=== PATIENT | female | born 1930 | race Asian ===

== ENCOUNTER 2016-11-20 16:01 | Emergency (ER) | payer OTHER ==
[2016-11-20 17:16] VITALS: BP 175/73
--- NOTE | 2016-11-20 19:36 | RAD ---
HISTORY: Cough, right rib tenderness COMPARISONS: None VIEWS: 7: Frontal dual-energy and lateral views of the chest, frontal and views of the right hemithorax. FINDINGS: CARDIOMEDIASTINAL SILHOUETTE: The aorta is tortuous. The cardiomediastinal silhouette is otherwise unremarkable. CHARLOTTE: The charlotte are normal. PLEURA: The costophrenic angles are sharp. No pleural abnormalities are noted. LUNG PARENCHYMA: The lungs are clear. ABDOMEN: The upper abdomen is clear. There is no subphrenic gas. BONES AND SOFT TISSUES: There is osteopenia. There is callus formation along the lateral aspect of the right ninth rib. There are degenerative changes of the shoulders and spine. OTHER: None. IMPRESSION: 1. CALLUS FORMATION ALONG THE RIGHT NINTH RIB SUGGESTIVE OF SUBACUTE TO CHRONIC RIB FRACTURE. 2. NO APPRECIABLE PNEUMOTHORAX. 3. NO ACTIVE CARDIOPULMONARY DISEASE
[2016-11-21 12:12] LABS: Urine Bacteria Absent (Absent); Urine Bilirubin Negative (Negative); Urine Glucose Negative (Negative); Urine Nitrite Negative (Negative)
--- NOTE | 2016-12-26 10:11 | UC ---
Baljeet Riley Janilya, scribed for Victoria Willett DO on 11/20/16 at 1825 . Respiratory Complaint HPI - HPI Summary HPI Summary: A 86 y/o female came in to [facility] presenting w/ a gradual onset of intermittent coughing starting a week ago. This is also when she developed rib pain. Severity rated 7/10. It is worse with palpation. And it does not radiate. In addition, there was also recent injury about 10 days ago, when she fell on her buttocks. Ibuprofen gave a little relief to her pain. When the pt first fell , she did not feel any pain in the ribs. She also did not feel any unsteadiness , confusion, or any other problems. Pt denies sore throat, ear ache, fever, sinus congestion, nasal congestion, runny nose, SOB, CP, urinary Sx, n/v/d. Pt has baseline heart murmur. - History of Current Complaint Chief Complaint: UCRespiratory Stated Complaint: RIB PAIN Time Seen by Provider: 11/20/16 18:11 Hx Obtained From: Patient, Family/Field Mechanical Meter Tester - son, Human Services Supervisor Onset/Duration: Gradual Onset, Lasting Days, Still Present Timing: Intermittent Episodes Severity Initially: Moderate Severity Currently: Moderate Pain Intensity: 8 Aggravating Factors: Nothing Alleviating Factors: Nothing Associated Signs And Symptoms: Positive: URI. Negative: Dyspnea, Fever, Chills , Wheezing, Hemoptysis, Dizziness, Sinus Discomfort - Allergies/Home Medications Allergies/Adverse Reactions: Allergies Allergy/AdvReac Type Severity Reaction Status Date / Time No Known Allergies Allergy Verified 11/20/16 17:15 PMH/Surg Hx/FS Hx/Imm Hx Previously Healthy: Yes Endocrine History Of: Reports: Diabetes Cardiovascular History Of: Reports: Hypertension Denies: Myocardial Infarction Respiratory History Of: Denies: COPD, Asthma - Surgical History Surgical History: None - Family History Known Family History: Positive: Hypertension, Diabetes Negative: Cardiac Disease - Social History Occupation: Retired Lives: With Family - son Alcohol Use: Occasionally Alcohol Amount: 3-4/week One every other day). Substance Use Type: None Smoking Status (MU): Never Smoked Tobacco Review of Systems Constitutional: Negative Skin: Negative Eyes: Negative ENT: Negative Respiratory: Cough Cardiovascular: Negative Gastrointestinal: Negative Genitourinary: Negative Motor: Negative Neurovascular: Negative Musculoskeletal: Other: - rib pain Neurological: Negative Psychological: Negative All Other Systems Reviewed And Are Negative: Yes Physical Exam Triage Information Reviewed: Yes Appearance: Well-Appearing, No Pain Distress, Well-Nourished Vital Signs: Initial Vital Signs Temp 98.6 F 11/20/16 17:09 Pulse 76 11/20/16 17:09 Resp 16 11/20/16 17:09 BP 175/73 11/20/16 17:09 Pulse Ox 98 11/20/16 17:09 Vital Signs Reviewed: Yes Eyes: Positive: Conjunctiva Clear. Negative: Discharge ENT: Positive: Hearing grossly normal. Negative: Muffled/hoarse voice Neck exam: Normal Neck: Positive: Supple Respiratory: Positive: Lungs clear, Normal breath sounds, No respiratory distress, No accessory muscle use Cardiovascular: Positive: RRR, No Murmur Musculoskeletal: Positive: Other: - Tenderness to ribs VIII-X on the right Neurological: Positive: Alert, Muscle Tone Normal Psychological Exam: Normal Psychological: Positive: Age Appropriate Behavior Skin Exam: Normal Skin: Positive: Other - warm, dry, normal color UC Diagnostic Evaluation - Laboratory O2 Sat by Pulse Oximetry: 98 - Radiology Xray Interpretation: No Acute Changes Radiology Interpretation Completed By: Radiologist Respiratory Course/Dx - Differential Dx/Diagnosis Differential Diagnosis/HQI/PQRI: Bronchitis, Lower Resp Infection, Other - rib fx, costochondritis, rib dysfunction Provider Diagnoses: rib fx, uri Discharge - Discharge Plan Condition: Stable Disposition: HOME Prescriptions: traMADol TAB* [Ultram*] 50 mg PO Q8H PRN #14 tab MDD 3 TABS PRN Reason: Pain Patient Education Materials: Rib Fracture (ED), Upper Respiratory Infection (ED ) Referrals: Preeti Padgett MD [Primary Care Provider] - (follow up in 2-5 days) Additional Instructions: IF TYLENOL DOES NOT ADAQUATELY CONTROL PAIN, YOU CAN TRY THE FOLLOWING MED WITH CAUTION: ULTRAM (tramadol hydrochloride): Ultram is an excellent drug for pain relief. It is not a narcotic, but it works in a similar way. Ultram can take up to two hours for full effect. Although not addicting, Ultram is best avoided in patients with a history of drug abuse. Ultram should not be used with alcohol, sleeping pills, or narcotics. If you're prone to seizures, Ultram can make you more likely to have a seizure. Ultram can be hazardous when combined with MAO-inhibitor antidepressants (such as Nardil or Parnate). Be sure your doctor is aware of all medicines you are taking. Persons with severe liver or kidney disease should increase the time between doses of Ultram. Discuss this with your doctor if you're uncertain. Side effects of Ultram can include dizziness, nausea, constipation, sleepiness, and itching. (These side effects are also seen with narcotic pain medicines.) Please call your doctor if you have other disturbing effects. THIS MEDICATION CAN MAKE YOU GROGGY AND UNSTABLE OF YOUR FEET. SO PLEASE TAKE CARE WHEN GOING FROM LAYING DOWN TO SEATED OR WHEN STANDING UP. IF YOU FEEL LIGHT HEADED WHEN CHANGING POSITIONS, PLEASE SIT OR LAY BACK DOWN TO AVOID FALLING. ESPECIALLY WHEN WAKING UP AT NIGHT TO PEE. The documentation as recorded by the Baljeet solitario Janilya accurately reflects the service I personally performed and the decisions made by me, Victoria Willett DO.
== END 2016-11-20 20:15 | disposition home or self-care (01) ==
LOC: UCEAST 16:01
DX: R07.81 Pleurodynia (principal); J06.9 Acute upper respiratory infection, unspecified; M25.70 Osteophyte, unspecified joint
CPT/HCPCS: 71020; 81002; 81003; 81015; 87086; 99212; G0463

== ENCOUNTER 2019-03-02 13:02 | Inpatient (IN) | payer MEDICARE ==
[2019-03-02] MEDS ORDERED: Nitroglycerin TAB 0.4 MG* 0.4 MG TAB ONE (13:20)
[2019-03-02] MEDS ORDERED: nitroGLYCERIN DRIP* 0 MCG/0 ML BTL ONE ×2 (13:21→13:28)
[2019-03-02] MEDS ORDERED: Ticagrelor* 90 MG TAB PO ONE (13:21)
[2019-03-02] MEDS ORDERED: Aspirin 81 mg CHEW TAB* 81 MG TAB.CHEW ONE (13:21)
[2019-03-02] MEDS ORDERED: Heparin for STEMI(*) 5,000 UNITS/ML 1 ML VIAL IV ONE ×2 (13:21→13:31)
[2019-03-02] MEDS ORDERED: Morphine 4 MG/ML VIAL (1 ml) 4 MG/ML VIAL ONE (13:21)
[2019-03-02] MEDS ORDERED: Ondansetron INJ* 2 MG/ML VIAL ONE (13:21)
[2019-03-02] MEDS ORDERED: Aspirin 81 mg CHEW TAB* 81 MG TAB.CHEW PO ONE (13:23)
[2019-03-02] MEDS ORDERED: Lidocaine 1% INJ* 10 MG/ML 30 ML SDV ONE (13:28)
[2019-03-02] MEDS ORDERED: Heparin 2 UNITS/ML IVPREMIX* 0 UNIT/0 ML BAG IV ONE (13:30)
[2019-03-02] MEDS ORDERED: Heparin(*) 1000 UNIT/ML 10 ML VIAL CATH LAB IV ONE (13:30)
[2019-03-02] MEDS ORDERED: Iohexol 350 (CONTRAST) 200 ML MDV IV ONE (13:36)
--- NOTE | 2019-03-02 13:40 | ED ---
HPI Chest Pain - HPI Summary HPI Summary: 88 year old F brought in by [facility] to [facility] from home, where patient lives with her children, accompanied by grandson with a chief complaint of generalized weakness and chest pain since 2 days ago. The patient is not currently having chest pain or any pain. The patient rates the pain 0/10 in severity. Symptoms aggravated by nothing. Symptoms alleviated by nothing. Grandson reports urinary incontinence. Patient reports upper right arm pain that began 2 days ago. Patient denies shortness of breath, nausea, and vomiting. EMS reports that patient has hx hypertension, diabetes, and hypercholesterolemia. No hx NM. EMS reports that patient's BP en route was 144/ 76. EMS did not give patient aspirin. Per grandson, grandson called patient at 1200 today because grandson's dad was worried about patient's symptoms. Patient was evaluated in room upon arrival at 1317. Dr. Hair, interventionalist, is at patient bedside at 1325. Dr. Hair reads echocardiogram at 1352 and reports that the anterior wall is not moving well, thinning at the apex. He is awaiting the official reading. He believes that patient had STEMI 2-3 days ago. He is still awaiting patient's son to arrive for further history. Vital signs while in room: HR 80 bpm, BP 110/65, O2 sat 97% Home Medications Medication Instructions Recorded Confirmed Type Aspirin 81 mg CHEW TAB* [Aspirin 1 tab PO DAILY 12/10/15 03/02/19 History Low Dose TAB*] Ergocalciferol CAP* [Drisdol CAP*] 50,000 units PO WEEKLY 03/02/19 03/02/19 History Furosemide TAB* [Lasix TAB*] 20 mg PO DAILY 03/02/19 03/02/19 History Losartan/Hydrochlorothiazide 0.5 tab PO BID 03/02/19 03/02/19 History [Losartan Potassium/Hydroc 50-12.5 mg] Meclizine TAB* [Antivert 12.5 TAB*] 12.5 mg PO BID PRN 03/02/19 03/02/19 History Multivitamins/Minerals TAB* 1 tab PO DAILY 03/02/19 03/02/19 History [Theragran/minerals TAB*] Ruston-3 Fatty Acids/Fish Oil [Fish 1 cap PO DAILY 03/02/19 03/02/19 History Oil 1200 mg] Simvastatin TAB(NF) [Zocor(NF)] 20 mg PO QPM 03/02/19 03/02/19 History amLODIPine TAB* [Norvasc 5 mg TAB*] 10 mg PO DAILY 03/02/19 03/02/19 History metFORMIN* [Glucophage 500 MG TAB 1,000 mg PO QAM 03/02/19 03/02/19 History *] metFORMIN* [Glucophage 500 MG TAB 500 mg PO QPM 03/02/19 03/02/19 History *] - History of Current Complaint Chief Complaint: EDChestPainROMI Time Seen by Provider: 03/02/19 13:28 Hx Obtained From: Patient, Family/Wash House Supervisor - Grandson, EMS Onset/Duration: Started Days Ago - 2, Still Present Timing: Constant Current Severity: None Pain Intensity: 0 Pain Scale Used: 0-10 Numeric Aggravating Factor(s): Nothing Alleviating Factor(s): Nothing Associated Signs and Symptoms: Positive: Other: - urinary incontinence, upper right arm pain; NEGATIVE: shortness of breath, nausea, and vomiting - Allergy/Home Medications Allergies/Adverse Reactions: Allergies Allergy/AdvReac Type Severity Reaction Status Date / Time No Known Allergies Allergy Verified 11/20/16 17:15 Home Medications: Home Medications Ergocalciferol CAP* [Drisdol CAP*] 50,000 units PO WEEKLY 03/02/19 [History Confirmed 03/02/19] Furosemide TAB* [Lasix TAB*] 20 mg PO DAILY 03/02/19 [History Confirmed 03/02/19 ] Losartan/Hydrochlorothiazide [Losartan Potassium/Hydroc 50-12.5 mg] 0.5 tab PO BID 03/02/19 [History Confirmed 03/02/19] Meclizine TAB* [Antivert 12.5 TAB*] 12.5 mg PO BID PRN 03/02/19 [History Confirmed 03/02/19] Multivitamins/Minerals TAB* [Theragran/minerals TAB*] 1 tab PO DAILY 03/02/19 [ History Confirmed 03/02/19] Ruston-3 Fatty Acids/Fish Oil [Fish Oil 1200 mg] 1 cap PO DAILY 03/02/19 [ History Confirmed 03/02/19] Simvastatin TAB(NF) [Zocor(NF)] 20 mg PO QPM 03/02/19 [History Confirmed ] amLODIPine TAB* [Norvasc 5 mg TAB*] 10 mg PO DAILY 03/02/19 [History Confirmed 03/02/19] metFORMIN* [Glucophage 500 MG TAB *] 1,000 mg PO QAM 03/02/19 [History Confirmed 03/02/19] metFORMIN* [Glucophage 500 MG TAB *] 500 mg PO QPM 03/02/19 [History Confirmed 03/02/19] PMH/Surg Hx/FS Hx/Imm Hx Previously Healthy: No Endocrine/Hematology History: Reports: Hx Diabetes Cardiovascular History: Reports: Hx Hypercholesterolemia, Hx Hypertension Denies: Hx Angina, Hx Coronary Artery Disease, Hx Myocardial Infarction, Hx Valvular Heart Disease Respiratory History: Denies: Hx Asthma, Hx Chronic Obstructive Pulmonary Disease (COPD) - Surgical History Surgery Procedure, Year, and Place: bilateral cataract removal Infectious Disease History: No Infectious Disease History: Denies: Traveled Outside the [place] in Last 30 Days - UNKNOWN - Family History Known Family History: Positive: Hypertension, Diabetes Negative: Cardiac Disease - Social History Alcohol Use: Occasionally Alcohol Amount: 3-4/week (One every other day). Hx Substance Use: No Substance Use Type: Reports: None Hx Tobacco Use: No Smoking Status (MU): Never Smoked Tobacco Review of Systems Positive: Chest Pain Negative: Shortness Of Breath Negative: Vomiting, Nausea Positive: incontinence Positive: Other - upper right arm pain Positive: Weakness All Other Systems Reviewed And Are Negative: Yes Physical Exam - Summary Physical Exam Summary: Appearance: Chronically ill-appearing, no pain distress, thin Skin: Warm, color reflects adequate perfusion, dry Head: Normal Head/Face inspection, atraumatic Eyes: Conjunctiva clear ENT: Normal inspection Neck: Supple, no nodes, no JVD Respiratory: Lungs clear, normal breath sounds, no respiratory distress Cardio: RRR, No murmur, pulses normal, brisk capillary refill Abdomen: Soft, nontender Bowel sounds: Present Musculoskeletal: Strength Intact/ROM intact, no calf tenderness, no edema. Psychological: Normal Neuro: Alert, muscle tone normal, no focal deficit Triage Information Reviewed: Yes Vital Signs On Initial Exam: Initial Vitals Temp Pulse Resp BP Pulse Ox 97.6 F 80 19 110/65 97 03/02/19 13:09 03/02/19 13:09 03/02/19 13:09 03/02/19 13:09 03/02/19 13:09 Vital Signs Reviewed: Yes Diagnostics - Vital Signs Vital Signs Temp Pulse Resp BP Pulse Ox 03/02/19 13:09 97.6 F 80 19 110/65 97 - Laboratory Result Diagrams: 03/02/19 13:31 03/02/19 13:31 Lab Statement: Any lab studies that have been ordered have been reviewed, and results considered in the medical decision making process. - Radiology CXR Radiology Interpretation Completed By: Radiologist Summary of Radiographic Findings: NO ACTIVE CARDIOPULMONARY DISEASE. ED physician has reviewed this report. - EKG 1312 Cardiac Rate: NL - 83 BPM EKG Rhythm: Sinus Rhythm EKG Comparison: Other - No prior to compare Summary of EKG Findings: Nml AV/IV CT, nml QTc, axis is -54. She has ST elevations in lead II, AVF, and V3-V6 associated with Q waves in all those leads. Discussed with Dr. Hair, cardiology, who feels that NM was a few days ago. No prior to compare. 1404 Cardiac Rate: NL - 86 BPM EKG Rhythm: Sinus Rhythm Summary of EKG Findings: Same as earlier today - Additional Comments Diagnostic Additional Comments: Transthoracic Echocardiogram, per cad intern, shows 1. Left ventricle: Systolic function is moderately reduced. The estimated ejection fraction is 30- 35%. Doppler parameters are consistent with abnormal left ventricular relaxation (grade 1 diastolic dysfunction). 2. Mitral valve: There is moderate regurgitation, with multiple jets. 3. Aortic valve: The findings are consistent with mild stenosis. There is mild to moderate regurgitation. ED physician has reviewed this report. Re-Evaluation - Re-Evaluation First Eval Re-Evaluation Time: 15:15 Comment: Patient and grandson are updated on plan of care. They are agreeable to admission. Chest Pain Course/Dx - Course Course Of Treatment: Patient medications reviewed this visit. Nurses notes reviewed. Code STEMI called at 13:19. Aware of troponin and lactic acid, both elevated, at 14:06. CXR showed NO ACTIVE CARDIOPULMONARY DISEASE. EKGs showed Nml AV/IV CT, nml QTc, axis is -54. She has ST elevations in lead II, AVF, and V3-V6 associated with Q waves in all those leads. Discussed with Dr. Hair, cardiology, who feels that NM was a few days ago. No prior to compare. Bloodwork was remarkable for troponin 4.11 and lactic acid 2.5. In ED course, patient was given aspirina and heparin. Dr. Ramirez, hospitalist, agrees to admit patient at 15:30. The patient will be admitted to Dr. Ramirez, hospitalist. The patient and grandson and family members are agreeable to admission. - Diagnoses Provider Diagnoses: Myocardial infarction, Elevated troponin, Lactic acidosis, Generalized weakness During the Visit The Following Alert/Code Occurred: STEMI - 1319 - Provider Notifications Discussed Care Of Patient With: Lorelei Ramirez Time Discussed With Above Provider: 13:50 Instructed by Provider To: Other - delonte Tanist, agrees to admit patient. - Critical Care Time Critical Care Time: 30-74 min - 30 minutes Discharge - Sign-Out/Discharge Documenting (check all that apply): Patient Departure - Admit Patient Received Moderate/Deep Sedation with Procedure: No - Discharge Plan Condition: Stable Disposition: ADMITTED TO [facility] - Attestation Statements Document Initiated by Scribe: Yes Documenting Scribe: Leighann Perales Provider For Whom Scribe is Documenting (Include Credential): Mae Weller MD Scribe Attestation: Leighann Riley, scribed for Mae Weller MD on 03/02/19 at 2036.
[2019-03-02 13:41] LABS: ABS Basophils 0.1 10^3/ul (0-0.2); ABS Lymphocytes 1.1 10^3/ul (1.0-4.8); ABS Monocytes 0.7 10^3/ul (0-0.8); ABS Neutrophils 8.2 10^3/ul (1.5-7.7); Eosinophil % 0.1 %; Hematocrit 33 % (35-47); Hemoglobin 11.3 g/dL (12.0-16.0); Lymphocyte % 11.3 %; Mean Corpuscular HGB Conc 34 g/dL (31-36); Mean Corpuscular Hemoglobin 30 pg (27-31); Mean Corpuscular Volume 89 fL (80-97); Mean Platelet Volume 7.6 fL (7.4-10.4); Platelet Count 311 10^3/uL (150-450); Red Blood Count 3.72 10^6 /uL (3.70-4.87); Red Cell Distribution Width 13 % (10.5-15); White Blood Count 10.1 10^3/uL (3.5-10.8)
[2019-03-02 14:04] LABS: Activated Partial Thrombo Time 37.7 seconds (26.0-38.0); INR 1.02 (0.82-1.09)
[2019-03-02 14:05] LABS: Albumin 4.1 g/dL (3.2-5.2); Albumin/Globulin Ratio 1.3 (1-3); CKMB ng/mL 23.4 ng/mL (0.6-6.3); Calcium 9.5 mg/dL (8.6-10.3); EGFR African American 55.6 (>60); EGFR Non-African American 45.9 (>60); Globulin 3.1 g/dL (2-4); Potassium 3.8 mmol/L (3.5-5.0); Total Bilirubin 0.6 mg/dL (0.2-1.0); Total Protein 7.2 g/dL (6.4-8.9); Troponin I 4.11 ng/mL (<0.04)
[2019-03-02] MEDS ORDERED: Heparin DRIP 25,000 UNITS(*) 25,000 UNITS/500 ML BAG IV SCH (14:30)
[2019-03-02] MEDS ORDERED: Heparin VIAL(*) 5000 UNITS/ML VIAL (FIVE THOUSAND) IV SCH (15:00)
--- NOTE | 2019-03-02 15:05 | ECHO ---
*[facility]* [place] [address] Fax #: [phone] Transthoracic Echocardiogram Patient: Mini Riddle Height: 62 in / 157.5 cm : 1930 Weight: 98.8 lb / 44.9 Study Date: 03/02/2019 kg Age: 88 BP: 123 / 61 Gender: F BMI/BSA: 18.1 kg/m^2 / HR: 81 bpm 1.42 m^2 *Marketing Teacher: * Robyn Bernard [facility] *Referring Physician: * Mae WellerReading Physician: * Scot Beltran MD Indications: Abnormal EKG. History: Chest pain. Conclusions Summary: 1. Left ventricle: Systolic function is moderately reduced. The estimated ejection fraction is 30-35%. Doppler parameters are consistent with abnormal left ventricular relaxation (grade 1 diastolic dysfunction). 2. Mitral valve: There is moderate regurgitation, with multiple jets. 3. Aortic valve: The findings are consistent with mild stenosis. There is mild to moderate regurgitation. Study data: Transthoracic echocardiogram. Procedure: Transthoracic echocardiography was performed. Image quality was adequate. Complete 2D, spectral Doppler, and color flow Doppler. Location: Emergency department. Patient status: Inpatient. Patient room number: ED12. Study status: Stat. Rhythm: Normal sinus rhythm. Findings Left ventricle: The cavity size is normal. Wall thickness is normal. Systolic function is moderately reduced. The estimated ejection fraction is 30-35%. Especially apical region. Regional wall motion abnormalities: Dyskinesis of the apical myocardium; akinesis of the mid anterior, mid anteroseptal, and apical septal myocardium; severe hypokinesis of the apical anterior, apical inferior, and mid anterolateral myocardium; hypokinesis of the mid inferoseptal myocardium; moderate hypokinesis of the apical lateral myocardium. Doppler parameters are consistent with abnormal left ventricular relaxation (grade 1 diastolic dysfunction). Right ventricle: The cavity size is normal. Wall thickness is normal. Systolic function is normal. Ventricular septum: Well visualized. Left atrium: The atrium is normal in size. Right atrium: Well visualized. The atrium is normal in size. Mitral valve: Well visualized. The leaflets are normal thickness. There is no evidence of stenosis. There is moderate regurgitation, with multiple jets. Aortic valve: Well visualized. The valve is trileaflet. The leaflets are normal thickness. Right coronary cusp mobility is restricted. The findings are consistent with mild stenosis. There is mild to moderate regurgitation. Tricuspid valve: Well visualized. The leaflets are normal thickness. There is no evidence of stenosis. There is mild regurgitation. Pulmonic valve: Well visualized. The leaflets are normal thickness. There is no evidence of stenosis. There is no significant regurgitation. Aorta: The aorta is well visualized. Aortic arch: The aortic arch is appears normal. Pericardium: There is no pericardial effusion. No evidence of pleural fluid accumulation. Pulmonary arteries: Well visualized. Systemic veins: Not well visualized. Measurements Left ventricle Value Ref Right atrium continued Value Ref CARINA, LAX 3.8 cm 3.8 - ML dim, ES, A4C 2.8 cm 2.6 - 4.4 5.2 SI dim, ES, A4C 3.8 cm 3.4 - 5.3 ESD, LAX 3.4 cm 2.2 - SI dim/bsa, ES, 2.7 cm/m^2 1.9 - 3.1 3.5 A4C FS, LAX (L) 11 % 27 - 45 PW, ED, LAX 0.7 cm 0.6 - Aortic valve Value Ref 0.9 Peak v, S 1.32 m/sec --------- FS (L) 11 % 27 - 45 VTI, S 29.8 cm --------- Mid-wall FS 6 % -------- Mean grad, S 5.0 mm Hg --------- PW, ED 0.7 cm 0.6 - Peak grad, S 7.0 mm Hg --------- 0.9 LVOT/AV, VTI 0.86 --------- PW/ID, ED 0.18 -------- ratio E', lat martita, TDI (L) 5.8 cm/sec >=10.0 AR peak v 2.85 m/sec - -------- E/e', lat martita, TDI 18 -------- AR PHT 392 ms ---- ----- E', med martita, TDI (L) 4.3 cm/sec >=7.0 AR peak grad 32 mm Hg - -------- E/e', med martita, TDI 24 -------- E', avg, TDI 5.1 cm/sec -------- Mitral valve Value Ref E/e', avg, TDI (H) 20 <=14 Peak E 1.03 m/sec - -------- Peak A 0.59 m/sec --------- LVOT Value Ref Decel time 116 ms --------- Peak hunter, S 1.17 m/sec -------- Peak grad, D 4.2 mm Hg --------- VTI, S 25.5 cm -------- Peak E/A ratio 1.7 --------- Peak grad, S 5 mm Hg -------- Mean grad, S 3 mm Hg -------- Pulmonic valve Value Ref Peak v, S 0.88 m/sec --------- Ventricular septum Value Ref Peak grad, S 3.0 mm Hg --------- IVS, ED 0.7 cm 0.6 - 0.9 Tricuspid valve Value Ref TR peak v 2.54 m/sec <=2.8 Right ventricle Value Ref Peak RV-RA grad, 26 mm Hg --------- CARINA, LAX 2.1 cm -------- S CARINA minor ax, A4C 2.3 cm 1.9 - Max TR hunter 2.76 m/sec --------- mid 3.5 Ascending aorta Value Ref Left atrium Value Ref AAo AP diam, S 3.4 cm --------- ML dim, A4C 3.3 cm -------- AAo AP diam/bsa, 2.4 cm/m^2 --------- SI dim, A4C 3.0 cm -------- S Vol/bsa, ES, 1-p 12 ml/m^2 11 - 40 A4C Aortic arch Value Ref Vol/bsa, ES, A/L 18 ml/m^2 16 - 34 Arch diam 2.1 cm --------- Right atrium Value Ref SI dim, ES 3.8 cm 3.4 - 5.3 Legend: (L) and (H) roula values outside specified reference range. Prepared and electronically signed by Scot Beltran MD 03/02/2019 15:04
[2019-03-02] MEDS ORDERED: Acetaminophen TAB* 325 MG PO PRN (16:50)
[2019-03-02] MEDS ORDERED: Al Hydrox/Mg Hydrox/Simet LIQ* 30 ML UDC PO PRN (16:50)
[2019-03-02] MEDS ORDERED: Dextrose 50% Syringe 50 ML* 25 GM/50 ML SYRINGE IV PUSH PRN (17:13)
[2019-03-02 18:38] LABS: Troponin I 4.88 ng/mL (<0.04)
[2019-03-02] MEDS: Metoprolol Tartrate TAB* 25 MG PO SCH (20:24)
[2019-03-02] MEDS: Atorvastatin* 40 MG TAB PO SCH (20:24)
[2019-03-02 20:37] LABS: Troponin I 4.42 ng/mL (<0.04)
--- NOTE | 2019-03-02 23:17 | HP ---
CONTINUATION ADDENDUM NOW INCLUDED ON THIS REPORT CC: Dr. Nazario; Dr. Preeti Padgett * HISTORY AND PHYSICAL: DATE OF ADMISSION: 03/02/19 PROVIDER: Naz Prakash NP. PRIMARY CARE PROVIDER: Dr. Pretei Padgett. BATTING MACHINE OPERATOR INSULATION: Dr. Nazario. ATTENDING PROVIDER: Dr. Lorelei Ramirez * (DICTATED BY NAZ PRAKASH NP) CHIEF COMPLAINT: Weakness. HISTORY OF PRESENT ILLNESS: Ms. Riddle is an 88-year-old female with a past medical history significant for diabetes, hypertension, hyperlipidemia, and history of dizziness who presented to the emergency room with a 3- to 4-day history of weakness. The grandson reports information obtained from this history of present illness as the patient does speak Cantonese in a dialect unable to use by the interpretation service, so grandson and son interpreted for the interview. The grandson reports that approximately 3 to 4 days ago the patient was moving some chairs and she developed some right arm pain. After that, the patient was weak, she lost control of her bowels, which was abnormal for her. The patient continued to be weak last night. The patient had generalized weakness and was slow to respond to questions. When the grandson enquired about the full response to questions, the son reported that she has been slow to respond to questions for approximately 2 days and had been very weak. The grandson reports that yesterday the patient was complaining of generalized body aches everywhere and not feeling well. When the grandson arrived to see the patient today, he called 911 as the patient was weak and she could hardly move and she was brought to the emergency room for further evaluation. While in the emergency room, the patient had routine lab work drawn. She had an EKG, which showed a STEMI. A STEMI code was called. Dr. Hair saw and evaluated the patient in the emergency room. Through interview with the patient and family, the patient did not want to undergo cardiac catheterization and opted for medical management at this point. At the time of interview, the patient denies any pain. She denies any nausea or vomiting. She denies any recent illness, fever, or chills. The family reports that the patient has a chronic cough. Denies any hemoptysis or shortness of breath. Denies any nausea or vomiting. The patient does have intermittent diarrhea that is chronic. Denies any abdominal pain. No gross hematuria. She does complain of pain with urination. Denies any focal weakness. No visual complaints. The patient denies any trouble swallowing. No rashes, lesions, depression, or anxiety. Due to her non-STEMI, we were asked to see and evaluate the patient for admission. PAST MEDICAL HISTORY: Significant for: 1. Diabetes. 2. Hypertension. 3. Hyperlipidemia. 4. Dizziness. PAST SURGICAL HISTORY: Cataracts removed. HOME MEDICATIONS: Include: 1. Metformin 1000 mg in the a.m., 500 mg in the p.m. 2. Losartan/hydrochlorothiazide 50/12.5 half a tablet twice daily. 3. Furosemide 20 mg p.o. daily. 4. Amlodipine 10 mg p.o. daily. 5. Aspirin 81 mg p.o. daily. 6. Simvastatin 20 mg p.o. daily. 7. Vitamin D2 at 1.25 mg weekly. 8. Multivitamin 1 tablet p.o. daily. 9. Fish oil 1200 mg p.o. daily. 10. Meclizine 12.5 mg p.o. b.i.d. FAMILY HISTORY: Father had heart disease and in his 70s. Unknown history of diabetes or cancer within the family. SOCIAL HISTORY: The patient does not smoke. She does drink approximately 4 ounces of wine 3 times a week. Denies any illicit drug use. She is . Surrogate decision maker in the event she is unable to make her own decision is her son, Vaibhav. 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 Her MOLST form was completed and placed on the chart. REVIEW OF SYSTEMS: An 11-point review of systems was completed. All pertinent positives are mentioned in the HPI. PHYSICAL EXAMINATION GENERAL: At this time, Ms. Riddle is an 88-year-old female. She is resting comfortably on the stretcher in the emergency room. She does not appear to be in any acute distress. VITAL SIGNS: Blood pressure 122/82, heart rate is 82, respirations are 20, O2 saturation 98% on room air, temperature is 97.6. HEENT: Head is atraumatic, normocephalic. Eyes: EOMs are intact. Sclerae anicteric and not pale. Oral mucosa appeared to be moist. NECK: Supple. LUNGS: Clear to auscultation bilaterally. No wheezes, rales, or rhonchi. CARDIAC: S1 and S2. There are no rubs or gallops. ABDOMEN: Soft and nontender. Bowel sounds are present x4. MUSCULOSKELETAL: She is able to move all 4 extremities with 5/5 strength. There is no clubbing or cyanosis. NEUROLOGIC: She follows commands and answers questions appropriately when asked by her children. SKIN: Intact. LABORATORY DATA/DIAGNOSTIC STUDIES: WBCs are 10.1, RBCs 3.72, hemoglobin 11.3 , hematocrit was 33, platelet count was 311. INR was 1.02. Sodium was 129, potassium 3.8, chloride 96, carbon dioxide was 22, anion gap of 11, BUN was 28, creatinine 1.12, glucose was 138, lactic acid was 2.5, calcium 9.5. ASTs were 35, ALTs were 16, alkaline phosphatase was 50, total CK is 396. Troponin initially was 4.11, BNP was 241. LDL cholesterol direct was 43. The patient had an electrocardiogram, which showed sinus rhythm at a rate of 86. She has ST elevations in I, V2, V3, V4, V5, V6, and aVL. She had a chest x-ray, radiologist impression: No active cardiopulmonary disease. She had a transthoracic echocardiogram, left ventricular systolic function is moderately reduced. Estimated ejection fraction is 30% to 35% consistent with abnormal left ventricular relaxation. Mitral valve, there is moderate regurgitation with multiple jets. Aortic valve findings are consistent with mild stenosis. There is vnrf-ag-pxydsodg regurgitation. The cavity size is normal. Wall thickness is normal. Systolic function is moderately reduced. The aortic arch appears to be normal. In the left ventricle, there are regional wall motion abnormalities. Dyskinesia of the apical myocardium. Akinesis of the mid anteroseptal and apical septal myocardium. Severe hypokinesis of the apical interior, apical inferior and mid anterolateral myocardium. Hypokinesis of the mid inferoseptal myocardium. Moderate hypokinesis of the apical lateral myocardium. ASSESSMENT AND PLAN: Ms. Riddle is an 88-year-old female who presented to the emergency room with a 3- to -4 day history of weakness and right arm pain who was found to have an ST-elevation myocardial infarction. She will be admitted to the ICU. CONTINUATION ADDENDUM: ASSESSMENT AND PLAN: 1. ST-elevation myocardial infarction. The patient was seen by Dr. Hair in the emergency room from Interventional [facility]. Between the family and the patient, they determined they did not want to proceed with cardiac catheterization. The patient was placed on a heparin drip. She will continue on a heparin drip. She was given aspirin 324 mg in the emergency room. I will give her metoprolol 12.5 mg and atorvastatin 40 mg p.o. We will continue to trend her troponin. She will be managed on telemetry. She will be placed in the ICU as the patient does report that she wants to have CPR, but no intubation and we will continue with medical management at this time. I did discuss with Dr. Beltran the results of her transthoracic echocardiogram. Dr. Beltran reports that she has significant heart muscle damage for the poor ejection fraction of 30% to 35%. He has indicated that the prognosis is poor at this time. 2. Diabetes. The patient will be placed on Accu-Cheks a.c. with lispro sliding scale. 3. Hypertension. The patient will continue her amlodipine. 4. Hyperlipidemia. She will continue on atorvastatin 40 mg p.o. daily. 5. Acute kidney injury. The patient does have mildly elevated BUN and creatinine, unclear if this is the patient's baseline. We will repeat a BMP in a.m., avoid nephrotoxic medication. 6. DVT prophylaxis: The patient is on heparin drip. We will continue the heparin drip. 7. FEN: She can have a heart healthy diet. 8. Code status: She is CPR, but do not intubate. TIME SPENT: Time spent on this admission was approximately 65 minutes, greater than half that time was spent at the bedside, reviewing events leading thus far to her hospitalization, performing physical exam, and reviewing my plan of care. I have discussed this with my attending, Dr. Lorelei Ramirez; she is in agreement with my plan. NAZ PRAKASH, REFUGIO [id number]/[facility]PS #: [id number]/CPS #: [id number] RADHA
--- NOTE | 2019-03-03 01:49 | HP ---
HISTORY AND PHYSICAL: ADDENDUM: ASSESSMENT AND PLAN: 1. ST-elevation myocardial infarction. The patient was seen by Dr. Hair in the emergency room from [facility]. Between the family and the patient, they determined they did not want to proceed with cardiac catheterization. The patient was placed on a heparin drip. She will continue on a heparin drip. She was given aspirin 324 mg in the emergency room. I will give her metoprolol 12.5 mg and atorvastatin 40 mg p.o. We will continue to trend her troponin. She will be managed on telemetry. She will be placed in the ICU as the patient does report that she wants to have CPR, but no intubation and we will continue with medical management at this time. I did discuss with Dr. Beltran the results of her transthoracic echocardiogram. Dr. Beltran reports that she has significant heart muscle damage for the poor ejection fraction of 30% to 35%. He has indicated that the prognosis is poor at this time. 2. Diabetes. The patient will be placed on Accu-Cheks a.c. with lispro sliding scale. 3. Hypertension. The patient will continue her amlodipine. 4. Hyperlipidemia. She will continue on atorvastatin 40 mg p.o. daily. 5. Acute kidney injury. The patient does have mildly elevated BUN and creatinine, unclear if this is the patient's baseline. We will repeat a BMP in a.m., avoid nephrotoxic medication. 6. DVT prophylaxis: The patient is on heparin drip. We will continue the heparin drip. 7. FEN: She can have a heart healthy diet. 8. Code status: She is CPR, but do not intubate. TIME SPENT: Time spent on this admission was approximately 65 minutes, greater than half that time was spent at the bedside, reviewing events leading thus far to her hospitalization, performing physical exam, and reviewing my plan of care. I have discussed this with my attending, Dr. Lorelei Ramirez; she is in agreement with my plan. KENJI JIMENEZ, PLATE CLEANER [id number]/[facility] #: [id number] MTDClare
[2019-03-03 06:04] LABS: ABS Eosinophils 0.1 10^3/ul (0-0.6); ABS Lymphocytes 1.4 10^3/ul (1.0-4.8); ABS Monocytes 0.5 10^3/ul (0-0.8); Eosinophil % 1.5 %; Hematocrit 32 % (35-47); Hemoglobin 10.9 g/dL (12.0-16.0); Lymphocyte % 19.9 %; Mean Corpuscular HGB Conc 34 g/dL (31-36); Mean Corpuscular Hemoglobin 30 pg (27-31); Mean Corpuscular Volume 88 fL (80-97); Mean Platelet Volume 7.8 fL (7.4-10.4); Platelet Count 298 10^3/uL (150-450); Red Blood Count 3.64 10^6 /uL (3.70-4.87); Red Cell Distribution Width 13 % (10.5-15); White Blood Count 7.1 10^3/uL (3.5-10.8)
[2019-03-03 06:27] LABS: BUN/Creatinine Ratio 24.5 (8-20); Calcium 8.9 mg/dL (8.6-10.3); EGFR African American 64.8 (>60); EGFR Non-African American 53.6 (>60); HDL Cholesterol 51.9 mg/dL; Potassium 3.8 mmol/L (3.5-5.0)
[2019-03-03] MEDS: Insulin LISPRO* 1 UNITS UNIT SUBCUT SCH ×3 (08:34→18:34)
[2019-03-03] MEDS ORDERED: amLODIPine TAB* 5 MG PO SCH (09:00)
[2019-03-03] MEDS: Aspirin EC TAB* 81 MG TAB.EC PO SCH (09:42)
[2019-03-03] MEDS: Metoprolol Tartrate TAB* 25 MG PO SCH (09:42)
[2019-03-03] MEDS: Multivitamins/Minerals TAB PO SCH (09:42)
[2019-03-03 10:26] LABS: Troponin I 3.49 ng/mL (<0.04)
[2019-03-03] MEDS: Nitroglycerin 0.1 mg/Hr PATCH* (2.5 MG) TRANSDERM SCH (11:27)
--- NOTE | 2019-03-03 14:29 | CONS ---
CC: Dr. Padgett; Dr. Nazario CARDIOLOGY CONSULTATION: DATE OF CONSULT: 03/03/19 REASON FOR EVALUATION: NV. HISTORY OF PRESENT ILLNESS: History was obtained from the chart from Dr. Hair and the patient's son who translates. She speaks [place]. This is an 88 -year-old woman who has a history of hypertension, diabetes, hyperlipidemia, renal insufficiency, who mostly is limited by pain in her knee. She uses a walker in her house. She is able to get around in the house, but watches television all day and gets tired just walking 1 block if she is outside the house. She was in the emergency room for 3 or 4 days with weakness after moving some chairs and she got some right arm pain. She also was incontinent of urine which is unusual. Because she was slow to respond for questions and was weak and complained of generalized ache, they called 911 and brought her to the emergency room. In the emergency room, she had an EKG which revealed an anterior NV with Q-waves and ST-elevations and a STEMI was called. Her troponin was elevated at 4.11. Given the fact that she had already Q'd out and her advanced age, it was decided to opt for medical management. Also, the patient requested not to be intubated. She continues to complain of weakness and right arm pain. Her echo showed a large anterior apical wall motion abnormality and [id number]-mr-zfyikm LV dysfunction with EF of 30% to 35%. She denies any chest discomfort. No palpitations. No syncope. No orthopnea. No peripheral edema. She has been at bedrest since she got here. PAST MEDICAL HISTORY: Includes: 1. Diabetes 2. Hypertension. 3. Hyperlipidemia. 4. NV sometime prior to 03/02/19 when she presented to the ER. 5. memory impairment 6. Possible dementia 7. Knee arthitis. PAST SURGICAL HISTORY: Cataract surgery. ALLERGIES: Include seasonal allergies. SOCIAL HISTORY: She denies tobacco use. Alcohol use: She has less than 1 glass of wine a day. The family said that she does not know the date or the year and is somewhat confused at times. She uses walker due to knee discomfort. She is . She had 3 children and is accompanied by her son. She has a sister who is 80, and lost another sibling. No premature coronary artery disease, although the family is not sure of the family history. REVIEW OF SYSTEMS: Review of systems x10 was negative except as above. PHYSICAL EXAMINATION: She is a well-developed elderly female, in no apparent distress. Blood pressure is 118/62, pulse of 72, and O2 sats 97% on room air. No significant JVD. Carotids 2+ without bruits. Extraocular muscles intact. Sclerae anicteric. Cardiac Exam: S1 and S2 with a 2/6 systolic ejection murmur at the base. Chest was clear with kyphosis. No CVAT. Abdomen: Bowel sounds present. Nontender. Femoral pulses intact without bruits. Distal pulses diminished, but present. No edema and negative Homans sign. Motor strength 5/5 bilaterally. Deep tendon reflexes were 2/4. Strength was 4/5 bilaterally. DIAGNOSTIC STUDIES/LAB DATA: Her labs include troponin of 4.88 yesterday at 0600, and 4.42 yesterday at 0800 and 4.11 at 1331 yesterday. Her lactic acid was 2.5 yesterday at 1331 and improved to 1 at 2000. Her cholesterol was 101, LDL of 30, HDL of 52, tag of 95, albumin 4.1, sodium 129, potassium of 3.8, BUN of 24; creatinine of 0.98, improved from 1.12; glucose 149. CK was elevated at 396. AST is 35 from yesterday. Echocardiogram from 03/02/19 revealed a large anterior apical distal inferior wall motion abnormality with akinesis to dyskinesis with EF of 30% to 35%. Abnormal LV function grade 1, moderate MR - multiple jets, mild aortic stenosis , mild-to- moderate AI. Chest x-ray: No active pulmonary disease and EKG from March 02, 2019, revealed sinus rhythm with anterior Q-waves and lateral ST-elevations, left axis deviation and EKG from 03/02/19 at 1404 showed similar findings and EKG from today revealed some improvement in the ST-elevations in I and AVL. Continued ST -elevations in II, III and aVF and V2 through V6 with new biphasic T-waves in V2 through V4, raising possibility of progression of her infarct or aneurysm formation. IMPRESSION: My impression is that Ms. Riddle has advanced age, multiple medical issues and now a recent NV with a large wall motion abnormality, moderate-to- severe LV dysfunction, and what appears to be Q-waves. Her troponins have been relatively flat. The picture is somewhat equivocal raising the possibility of transmural infarct versus stunning with some hibernating or ischemic myocardium still. Given the delayed presentation, the Q-waves, her advanced age and comorbidities, it was felt that medical management was advisable. It is still unclear whether she has salvageable myocardium or whether she would be interested in proceeding with an intervention, especially in light of her wishes not to be intubated. I discussed this at length with the son at the bedside and the patient. He would like to discuss it further with other family members and consider continuing this discussion later in the day. He understands that her prognosis is guarded. She is at increased risk of extension of her NV, arrhythmia, sudden , mechanical complications, and cardioembolic complications. We are also concerned that her baseline level of function is somewhat reduced and her baseline cognitive function is reduced and may deteriorate with interventions. For the time being, I would recommend the following: We would follow serial troponins, CKs and SGOTs. We would continue aspirin and Lipitor. We would continue IV heparin for now. We would continue metoprolol 12.5 mg b.i.d. as tolerated. We would consider adding a low dose of an KAMLA inhibitor given her LV dysfunction if bp will allow. We would add low-dose nitrates. We would follow serial blood pressures. We would maintain potassium over 4. After discussion with the family, they will consider whether hospice, palliative care , and continued medical therapy versus more aggressive therapy will be chosen. I would favor a more conservative approach. There is also a risk with anticoagulation for prophylaxis for anterior apical thrombus. Given her unsteadiness and confusion, anticoagulation would be an increased risk. We will continue it during the hospitalization; we will have to make a decision about longer term. I offered to be available to rediscuss these issues as needed with the family. [id number]/[facility] #: [id number] RADHA
--- NOTE | 2019-03-03 17:50 | PN ---
Subjective Date of Service: 03/03/19 Interval History: Patient seen and examined in ICU this morning. family at bedside, assisting with translation (patient primarily Kiswahili speaking, Cantonese, no hospital translation service available). Patient denies chest pain, but does endorse right arm pain. Denies SOB, no n/v, some fatigue. No further complaints. Objective Active Medications: Acetaminophen (Tylenol Tab*) 650 mg PO Q4H PRN PRN Reason: FEVER/PAIN Al Hydrox/Mg Hydrox/Simethicone (Maalox Plus*) 30 ml PO Q6H PRN PRN Reason: INDIGESTION Aspirin (Aspirin Ec Tab*) 81 mg PO DAILY [facility] Last Admin: 03/03/19 09:42 Dose: 81 mg Atorvastatin Calcium (Lipitor*) 40 mg PO 2100 [facility] Last Admin: 03/02/19 20:24 Dose: 40 mg Dextrose (D50w Syringe 50 Ml*) 12.5 gm IV PUSH .FOR FS < 60 - SS PRN PRN Reason: FS < 60 Heparin Sodium (Porcine) (Heparin Vial(*)) 0 units IV .PER PROTOCOL [facility] Heparin Sodium/Dextrose (Heparin Drip 25,000 Units(*)) 25,000 units in 500 mls @ 0 mls/hr IV PER RATE [facility]; Protocol Last Admin: 03/02/19 16:37 Dose: 11 mls/hr Insulin Human Lispro (Humalog*) 0 units [facility]; Protocol Last Admin: 03/03/19 13:17 Dose: Not Given Metoprolol Tartrate (Lopressor Tab*) 12.5 mg PO DAILY [facility] Last Admin: 03/03/19 09:42 Dose: 12.5 mg Multivitamins/Minerals (Theragran/Minerals Tab*) 1 tab PO DAILY [facility] Last Admin: 03/03/19 09:42 Dose: 1 tab Nitroglycerin (Nitroglycerin 2.5 Mg Patch*) 1 patch TRANSDERM DAILY@0900 [facility] Last Admin: 03/03/19 11:27 Dose: 1 patch Pharmacy Profile Note (Nitro Patch/Oint Remove*) 1 note PATCH OFF 2100 [facility] Vital Signs - 8 hr 03/03/19 03/03/19 03/03/19 10:00 10:01 11:00 Temperature Pulse Rate 67 67 55 Respiratory 21 18 27 Rate Blood Pressure 96/53 (mmHg) O2 Sat by Pulse 100 99 96 Oximetry 03/03/19 03/03/19 03/03/19 11:01 12:00 14:34 Temperature 97.9 F 97.5 F Pulse Rate 55 59 Respiratory 17 16 Rate Blood Pressure 134/55 119/59 (mmHg) O2 Sat by Pulse 97 100 Oximetry Oxygen Devices in Use Now: None Appearance: alert, NAD Eyes: No Scleral Icterus, PERRLA Ears/Nose/Mouth/Throat: NL Teeth, Lips, Gums, Mucous Membranes Moist Neck: NL Appearance and Movements; NL JVP, Trachea Midline Respiratory: Symmetrical Chest Expansion and Respiratory Effort, Clear to Auscultation Cardiovascular: NL Sounds; No Murmurs; No JVD, No Edema Abdominal: NL Sounds; No Tenderness; No Distention Extremities: No Edema, No Clubbing, Cyanosis Skin: No Rash or Ulcers, No Nodules or Sclerosis Neurological: Alert and Oriented x 3, NL Sensation Nutrition: Taking PO's Result Diagrams: 03/03/19 05:40 03/03/19 05:40 Microbiology and Other Data: Microbiology 03/02/19 20:10 Nasal Screen MRSA (PCR) - Final Nasal Mrsa Not Detected Diagnostic Imaging: *[facility]* [place] [address] Fax #: [phone] Transthoracic Echocardiogram Patient: Mini Riddle Height: 62 in / 157.5 cm : 1930 Weight: 98.8 lb / 44.9 Study Date: 03/02/2019 kg Age: 88 BP: 123 / 61 Gender: F BMI/BSA: 18.1 kg/m^2 / HR: 81 bpm 1.42 m^2 *Human Performance Technologist: * Robyn Bernard RD *Referring Physician: * Mae Weller *Reading Physician: * Scot Beltran MD Indications: Abnormal EKG. History: Chest pain. Conclusions Summary: 1. Left ventricle: Systolic function is moderately reduced. The estimated ejection fraction is 30-35%. Doppler parameters are consistent with abnormal left ventricular relaxation (grade 1 diastolic dysfunction). 2. Mitral valve: There is moderate regurgitation, with multiple jets. 3. Aortic valve: The findings are consistent with mild stenosis. There is mild to moderate regurgitation. Study data: Transthoracic echocardiogram. Procedure: Transthoracic echocardiography was performed. Image quality was adequate. Complete 2D, spectral Doppler, and color flow Doppler. Location: Emergency department. Patient status: Inpatient. This report is only to be considered final once signed by the Provider(s) as displayed in the "<Electronically Signed by >" field (s). Absence of a signature indicates the report is in a draft status and still needs to be finalized. In the event this document was created by someone other than the signing Provider, the individual initiating the document will be listed in the "Entered by:" or "Dictated by:" nevarez. Assess/Plan/Problems-Billing Assessment: This is an 88 year old female with history of DM, HTN, HLP that presented to the ED with complaint of weakness and chest pain x 2days and brought to the ED for evaluation, found to have ST segments on EKG, STEMI called. - Patient Problems (1) STEMI (ST elevation myocardial infarction) Code(s): I21.3 - ST ELEVATION (STEMI) MYOCARDIAL INFARCTION OF [facility] SITE SNOMED Code(s): 31840839 Comment: - Patient and EKG evaluated by Dr. Hair, concludes that patient likely infarcted 2 days prior - Family elected conservative treatment with medical, no cath - Continue heparin drip until tropnins trend down - Placed NTG patch low dose for continued angina, ASA, BB and statin - appreciate recommendations from cardiology (2) HTN (hypertension) Code(s): I10 - ESSENTIAL (PRIMARY) HYPERTENSION SNOMED Code(s): 07984382 Comment: - continue metoprolol 12.5 BID, BP stable (3) Diabetes Code(s): E11.9 - TYPE 2 DIABETES MELLITUS WITHOUT COMPLICATIONS SNOMED Code(s) : 03835921 Comment: - Lispro SS with accuchecks ACHS (4) Heart failure Code(s): I50.9 - HEART FAILURE, UNSPECIFIED SNOMED Code(s): 48144297 Comment: - ECHO with EF of 30-35% as above (5) DVT prophylaxis Code(s): Z29.9 - ENCOUNTER FOR PROPHYLACTIC MEASURES, UNSPECIFIED SNOMED Code( s): 773882825 Comment: - On heparin drip (6) Limited code status Code(s): HLS2996 - SNOMED Code(s): 439146144 Comment: - Patient wishes for CPR, no intubation Status and Disposition: Inpatient, guarded. Downgrade from ICU to tele.
[2019-03-03] MEDS: Atorvastatin* 40 MG TAB PO SCH (20:57)
[2019-03-03] MEDS: Nitro Patch/OINT Remove PATCH OFF SCH (20:57)
[2019-03-04 06:00] LABS: ABS Eosinophils 0.2 10^3/ul (0-0.6); ABS Lymphocytes 1.3 10^3/ul (1.0-4.8); ABS Monocytes 0.4 10^3/ul (0-0.8); Eosinophil % 2.6 %; Hematocrit 33 % (35-47); Hemoglobin 11.2 g/dL (12.0-16.0); Mean Corpuscular HGB Conc 34 g/dL (31-36); Mean Corpuscular Hemoglobin 30 pg (27-31); Mean Corpuscular Volume 88 fL (80-97); Mean Platelet Volume 8.2 fL (7.4-10.4); Nucleated Red Blood Cells % 0.1; Platelet Count 284 10^3/uL (150-450); Red Blood Count 3.78 10^6 /uL (3.70-4.87); Red Cell Distribution Width 14 % (10.5-15); White Blood Count 5.9 10^3/uL (3.5-10.8)
[2019-03-04] MEDS: Insulin LISPRO* 1 UNITS UNIT SUBCUT SCH ×3 (08:57→17:51)
[2019-03-04] MEDS: Metoprolol Tartrate TAB* 25 MG PO SCH (09:13)
[2019-03-04] MEDS: Aspirin EC TAB* 81 MG TAB.EC PO SCH (09:13)
[2019-03-04] MEDS: Multivitamins/Minerals TAB PO SCH (09:13)
[2019-03-04] MEDS: Nitroglycerin 0.1 mg/Hr PATCH* (2.5 MG) TRANSDERM SCH (09:13)
[2019-03-04 14:33] LABS: Troponin I 1.24 ng/mL (<0.04)
[2019-03-04] MEDS: Clopidogrel TAB* 75 MG PO SCH (14:44)
--- NOTE | 2019-03-04 15:01 | PN ---
Subjective Date of Service: 03/04/19 Interval History: Pt is feeling discomfort in the R proximal arm/shoulder. Via translation from her family she states it is similar to what she had when she presented to the ER (there has been question if this is an anginal equivalent or musculoskeletal) . She denies any CP or SOB. She ambulated about 8-10ft with PT today. Per her [id number] who is a physician, this is a typical amount she would walk at home at one time. Objective Active Medications: Acetaminophen (Tylenol Tab*) 650 mg PO Q4H PRN PRN Reason: FEVER/PAIN Al Hydrox/Mg Hydrox/Simethicone (Maalox Plus*) 30 ml PO Q6H PRN PRN Reason: INDIGESTION Aspirin (Aspirin Ec Tab*) 81 mg PO DAILY [facility] Last Admin: 03/04/19 09:13 Dose: 81 mg Atorvastatin Calcium (Lipitor*) 40 mg PO 2100 [facility] Last Admin: 03/03/19 20:57 Dose: 40 mg Clopidogrel Bisulfate (Plavix Tab*) 75 mg PO DAILY [facility] Last Admin: 03/04/19 14:44 Dose: 75 mg Dextrose (D50w Syringe 50 Ml*) 12.5 gm IV PUSH .FOR FS < 60 - SS PRN PRN Reason: FS < 60 Insulin Human Lispro (Humalog*) 0 units SUBCUT [facility]; Protocol Last Admin: 03/04/19 12:30 Dose: Not Given Metoprolol Tartrate (Lopressor Tab*) 12.5 mg PO DAILY [facility] Last Admin: 03/04/19 09:13 Dose: 12.5 mg Multivitamins/Minerals (Theragran/Minerals Tab*) 1 tab PO DAILY [facility] Last Admin: 03/04/19 09:13 Dose: 1 tab Nitroglycerin (Nitroglycerin 2.5 Mg Patch*) 1 patch TRANSDERM DAILY@0900 [facility] Last Admin: 03/04/19 09:13 Dose: 1 patch Pharmacy Profile Note (Nitro Patch/Oint Remove*) 1 note PATCH OFF 2099 [facility] Last Admin: 03/03/19 20:57 Dose: 1 note Vital Signs - 8 hr 03/04/19 03/04/19 03/04/19 07:11 08:00 11:06 Temperature 98.8 F 98.8 F Pulse Rate 69 50 Respiratory 16 18 16 Rate Blood Pressure 134/55 106/46 (mmHg) O2 Sat by Pulse 100 100 Oximetry Oxygen Devices in Use Now: None Appearance: Elderly female sitting up in bed, NAD Eyes: No Scleral Icterus Ears/Nose/Mouth/Throat: Mucous Membranes Moist Respiratory: Symmetrical Chest Expansion and Respiratory Effort, Clear to Auscultation - few bibasilar crackles Cardiovascular: NL Sounds; No Murmurs; No JVD, RRR, No Edema Abdominal: NL Sounds; No Tenderness; No Distention Extremities: No Clubbing, Cyanosis, - - decreased ROM of R shoulder c/w rotator cuff injury Skin: No Nodules or Sclerosis Neurological: - - alert, unable to determine if she is oriented as she does not speak syriac Result Diagrams: 03/04/19 05:26 03/03/19 05:40 Microbiology and Other Data: Microbiology 03/02/19 20:10 Nasal Screen MRSA (PCR) - Final Nasal Mrsa Not Detected Diagnostic Imaging: *[facility]* [place] [address] Fax #: [phone] Transthoracic Echocardiogram Patient: Mini Riddle Height: 62 in / 157.5 cm : 1930 Weight: 98.8 lb / 44.9 Study Date: 03/02/2019 kg Age: 88 BP: 123 / 61 Gender: F BMI/BSA: 18.1 kg/m^2 / HR: 81 bpm 1.42 m^2 *Cargo Trimmer: * Robyn Bernard RD *Referring Physician: * Mae Weller *Reading Physician: * Scot Beltran MD Indications: Abnormal EKG. History: Chest pain. Conclusions Summary: 1. Left ventricle: Systolic function is moderately reduced. The estimated ejection fraction is 30-35%. Doppler parameters are consistent with abnormal left ventricular relaxation (grade 1 diastolic dysfunction). 2. Mitral valve: There is moderate regurgitation, with multiple jets. 3. Aortic valve: The findings are consistent with mild stenosis. There is mild to moderate regurgitation. Study data: Transthoracic echocardiogram. Procedure: Transthoracic echocardiography was performed. Image quality was adequate. Complete 2D, spectral Doppler, and color flow Doppler. Location: Emergency department. Patient status: Inpatient. This report is only to be considered final once signed by the Provider(s) as displayed in the "<Electronically Signed by >" field (s). Absence of a signature indicates the report is in a draft status and still needs to be finalized. In the event this document was created by someone other than the signing Provider, the individual initiating the document will be listed in the "Entered by:" or "Dictated by:" nevarez. Assess/Plan/Problems-Billing Ms Riddle is an 88 year old female with history of DM, HTN, HLD that presented to the ED with complaint of weakness and chest pain x 2days and brought to the ED for evaluation, found to have ST segments on EKG, STEMI called. - Patient Problems (1) STEMI (ST elevation myocardial infarction) Current Visit: Yes Status: Acute Code(s): I21.3 - ST ELEVATION (STEMI) MYOCARDIAL INFARCTION OF [facility] SITE SNOMED Code(s): 10497540 Comment: Medical management alone was decided upon after discussion with family and Dr. Hair. Continue ASA, add plavix, metoprolol and low dose NTG patch. The patient is unlikely to benefit from PCI as her functional status at baseline is already so poor. The patient is at risk for mural thrombus given the size and location of her NC. She is not a good coumadin candidate and therefore will utilize ASA and plavix, though this is not as good as coumadin. (2) Heart failure Current Visit: Yes Status: Acute Code(s): I50.9 - HEART FAILURE, UNSPECIFIED SNOMED Code(s): 68532268 Comment: Echo with EF of 30-35%. No overt signs of fluid overload. Will continue to monitor. Hold off on diuretic therapy for now. (3) Right shoulder pain Current Visit: Yes Status: Acute Code(s): M25.511 - PAIN IN RIGHT SHOULDER SNOMED Code(s): 90606356 Comment: Likely secondary to rotator cuff injury- continue prn tylenol. (4) Diabetes Current Visit: Yes Status: Acute Code(s): E11.9 - TYPE 2 DIABETES MELLITUS WITHOUT COMPLICATIONS SNOMED Code(s): 25193763 Comment: Sugars have been under acceptable control for this elderly female. Resume metformin on discharge. (5) HTN (hypertension) Current Visit: Yes Status: Acute Code(s): I10 - ESSENTIAL (PRIMARY) HYPERTENSION SNOMED Code(s): 41572409 Comment: BP is under good control. Continue metoprolol 12.5mg BID. (6) DVT prophylaxis Current Visit: Yes Status: Acute Code(s): Z29.9 - ENCOUNTER FOR PROPHYLACTIC MEASURES, UNSPECIFIED SNOMED Code(s): 021197230 Comment: start SQ heparin tonight (7) Limited code status Current Visit: Yes Status: Acute Code(s): LRH7440 - SNOMED Code(s): 386416069 Comment: Patient wishes for CPR, no intubation Status and Disposition: .
[2019-03-04] MEDS: Atorvastatin* 40 MG TAB PO SCH (19:46)
[2019-03-04] MEDS: Nitro Patch/OINT Remove PATCH OFF SCH (19:46)
[2019-03-05] MEDS: Heparin VIAL(*) 5000 UNITS/ML VIAL (FIVE THOUSAND) SUBCUT SCH ×3 (00:07→13:19)
[2019-03-05 06:33] LABS: ABS Eosinophils 0.1 10^3/ul (0-0.6); ABS Lymphocytes 1.3 10^3/ul (1.0-4.8); ABS Monocytes 0.4 10^3/ul (0-0.8); ABS Neutrophils 3.2 10^3/ul (1.5-7.7); Eosinophil % 1.8 %; Hematocrit 34 % (35-47); Hemoglobin 11.5 g/dL (12.0-16.0); Lymphocyte % 25.7 %; Mean Corpuscular HGB Conc 34 g/dL (31-36); Mean Corpuscular Hemoglobin 30 pg (27-31); Mean Corpuscular Volume 89 fL (80-97); Mean Platelet Volume 8.1 fL (7.4-10.4); Platelet Count 323 10^3/uL (150-450); Red Blood Count 3.79 10^6 /uL (3.70-4.87); Red Cell Distribution Width 14 % (10.5-15); White Blood Count 5.1 10^3/uL (3.5-10.8)
[2019-03-05] MEDS: Metoprolol Tartrate TAB* 25 MG PO SCH (09:09)
[2019-03-05] MEDS: Aspirin EC TAB* 81 MG TAB.EC PO SCH (09:10)
[2019-03-05] MEDS: Multivitamins/Minerals TAB PO SCH (09:10)
[2019-03-05] MEDS: Clopidogrel TAB* 75 MG PO SCH (09:10)
[2019-03-05] MEDS: Nitroglycerin 0.1 mg/Hr PATCH* (2.5 MG) TRANSDERM SCH (09:11)
[2019-03-05] MEDS: Insulin LISPRO* 1 UNITS UNIT SUBCUT SCH ×3 (09:11→16:35)
--- NOTE | 2019-03-05 09:44 | PN ---
Subjective Date of Service: 03/05/19 Interval History: Pt is feeling well. No chest pain or SOB. She continues to have pain in the R upper arm. Her grandson tells me that she has several steps she needs to climb to get into her home. She typically can do the stairs but her family is worried that she may not be able to now. Objective Active Medications: Acetaminophen (Tylenol Tab*) 650 mg PO Q4H PRN PRN Reason: FEVER/PAIN Al Hydrox/Mg Hydrox/Simethicone (Maalox Plus*) 30 ml PO Q6H PRN PRN Reason: INDIGESTION Aspirin (Aspirin Ec Tab*) 81 mg PO DAILY [facility] Last Admin: 03/05/19 09:10 Dose: 81 mg Atorvastatin Calcium (Lipitor*) 40 mg PO 2100 [facility] Last Admin: 03/04/19 19:46 Dose: 40 mg Clopidogrel Bisulfate (Plavix Tab*) 75 mg PO DAILY [facility] Last Admin: 03/05/19 09:10 Dose: 75 mg Dextrose (D50w Syringe 50 Ml*) 12.5 gm IV PUSH .FOR FS < 60 - SS PRN PRN Reason: FS < 60 Heparin Sodium (Porcine) (Heparin Vial(*)) 5,000 units SUBCUT Q8HR [facility] Last Admin: 03/05/19 05:35 Dose: 5,000 units Insulin Human Lispro (Humalog*) 0 units SUBCUT AC [facility]; Protocol Last Admin: 03/05/19 09:11 Dose: 1 units Metoprolol Tartrate (Lopressor Tab*) 12.5 mg PO DAILY [facility] Last Admin: 03/05/19 09:09 Dose: 12.5 mg Multivitamins/Minerals (Theragran/Minerals Tab*) 1 tab PO DAILY [facility] Last Admin: 03/05/19 09:10 Dose: 1 tab Nitroglycerin (Nitroglycerin 2.5 Mg Patch*) 1 patch TRANSDERM DAILY@0900 [facility] Last Admin: 03/05/19 09:11 Dose: 1 patch Pharmacy Profile Note (Nitro Patch/Oint Remove*) 1 note PATCH OFF 2100 [facility] Last Admin: 03/04/19 19:46 Dose: 1 note Vital Signs - 8 hr 03/05/19 03:29 Temperature 97.9 F Pulse Rate 69 Respiratory 16 Rate Blood Pressure 145/55 (mmHg) O2 Sat by Pulse 99 Oximetry Oxygen Devices in Use Now: None Appearance: Elderly female sitting up in a chair, NAD Eyes: No Scleral Icterus Ears/Nose/Mouth/Throat: Mucous Membranes Moist Respiratory: Symmetrical Chest Expansion and Respiratory Effort, Clear to Auscultation Cardiovascular: NL Sounds; No Murmurs; No JVD, RRR, No Edema Abdominal: NL Sounds; No Tenderness; No Distention Extremities: No Clubbing, Cyanosis Skin: No Nodules or Sclerosis Neurological: Alert and Oriented x 3 - as far as I can tell via her grandson translating Result Diagrams: 03/05/19 06:09 03/03/19 05:40 Microbiology and Other Data: Microbiology 03/02/19 20:10 Nasal Screen MRSA (PCR) - Final Nasal Mrsa Not Detected Diagnostic Imaging: *[facility]* [place] [address] Fax #: [phone] Transthoracic Echocardiogram Patient: Mini Riddle Height: 62 in / 157.5 cm : 1930 Weight: 98.8 lb / 44.9 Study Date: 03/02/2019 kg Age: 88 BP: 123 / 61 Gender: F BMI/BSA: 18.1 kg/m^2 / HR: 81 bpm 1.42 m^2 *Turkey Boner: * Robyn Bernard [facility] *Referring Physician: * Mae Weller *Reading Physician: * Scot Beltran MD Indications: Abnormal EKG. History: Chest pain. Conclusions Summary: 1. Left ventricle: Systolic function is moderately reduced. The estimated ejection fraction is 30-35%. Doppler parameters are consistent with abnormal left ventricular relaxation (grade 1 diastolic dysfunction). 2. Mitral valve: There is moderate regurgitation, with multiple jets. 3. Aortic valve: The findings are consistent with mild stenosis. There is mild to moderate regurgitation. Study data: Transthoracic echocardiogram. Procedure: Transthoracic echocardiography was performed. Image quality was adequate. Complete 2D, spectral Doppler, and color flow Doppler. Location: Emergency department. Patient status: Inpatient. This report is only to be considered final once signed by the Provider(s) as displayed in the "<Electronically Signed by >" field (s). Absence of a signature indicates the report is in a draft status and still needs to be finalized. In the event this document was created by someone other than the signing Provider, the individual initiating the document will be listed in the "Entered by:" or "Dictated by:" nevarez. Assess/Plan/Problems-Billing Ms Riddle is an 88 year old female with history of DM, HTN, HLD that presented to the ED with complaint of weakness and chest pain x 2days and brought to the ED for evaluation, found to have ST segments on EKG, STEMI called. - Patient Problems (1) STEMI (ST elevation myocardial infarction) Current Visit: Yes Status: Acute Code(s): I21.3 - ST ELEVATION (STEMI) MYOCARDIAL INFARCTION OF [facility] SITE SNOMED Code(s): 03596661 Comment: Medical management alone was decided upon after discussion with family and Dr. Hair. Continue ASA, plavix, metoprolol and low dose NTG patch. The patient is unlikely to benefit from PCI as her functional status at baseline is already so poor. Follow up with Dr. Nazario in 1-2 weeks. She is ready to go home this afternoon. (2) Heart failure Current Visit: Yes Status: Acute Code(s): I50.9 - HEART FAILURE, UNSPECIFIED SNOMED Code(s): 83475944 Comment: Echo with EF of 30-35%. No overt signs of fluid overload. Will continue to monitor. Hold off on diuretic therapy for now. I discussed a low salt diet and signs of heart failure to monitor for. She will need very close monitoring by her family for signs of heart failure. (3) Right shoulder pain Current Visit: Yes Status: Acute Code(s): M25.511 - PAIN IN RIGHT SHOULDER SNOMED Code(s): 45594634 Comment: Likely secondary to rotator cuff injury- continue prn tylenol. (4) Diabetes Current Visit: Yes Status: Acute Code(s): E11.9 - TYPE 2 DIABETES MELLITUS WITHOUT COMPLICATIONS SNOMED Code(s): 92232779 Comment: Sugars have been under acceptable control for this elderly female. Resume metformin on discharge. (5) HTN (hypertension) Current Visit: Yes Status: Acute Code(s): I10 - ESSENTIAL (PRIMARY) HYPERTENSION SNOMED Code(s): 38223454 Comment: BP is under good control. Continue metoprolol 12.5mg BID. (6) DVT prophylaxis Current Visit: Yes Status: Acute Code(s): Z29.9 - ENCOUNTER FOR PROPHYLACTIC MEASURES, UNSPECIFIED SNOMED Code(s): 776755816 Comment: start SQ heparin tonight (7) Limited code status Current Visit: Yes Status: Acute Code(s): SFC0797 - SNOMED Code(s): 961272924 Comment: Patient wishes for CPR, no intubation Status and Disposition: .
[2019-03-05 17:30] VITALS: BP 135/59
--- NOTE | 2019-03-06 00:31 | DS ---
CC: Dr. Preeti Padgett * DISCHARGE SUMMARY: DATE OF ADMISSION: 03/02/19 DATE OF DISCHARGE: 03/05/19 PRIMARY CARE PROVIDER: Dr. Preeti Padgett. PRINCIPAL DIAGNOSES: 1. ST-elevation myocardial infarction. 2. Moderate systolic dysfunction without evidence of congestive heart failure. SECONDARY DIAGNOSES: 1. Hypertension. 2. Hyperlipidemia. 3. Type 2 diabetes. DISCHARGE MEDICATIONS: 1. Simvastatin 40 mg p.o. q.h.s. (increased dose). 2. Metoprolol XL 25 mg p.o. daily. 3. Metformin 500 mg p.o. b.i.d. 4. Multivitamin one-half tab p.o. daily. 5. Aspirin 81 mg p.o. daily. 6. Nitroglycerin patch 0.1 mg per hour 1 patch topically daily on for 12 hours off for 12 hours (new). 7. Plavix 75 mg p.o. daily (new). 8. Tylenol 650 mg p.o. q.4 hours p.r.n. pain. HOSPITAL COURSE: Ms. Riddle is an 88-year-old Cantonese-speaking woman who presented to the emergency room on 03/02/19 with complaints of weakness. The patient was found in the emergency room to be having an ST elevation [place]. The patient was seen in consultation by Dr. Hair. Ultimately, it was determined that the patient would proceed with medical management alone. She was treated with a heparin drip, aspirin, metoprolol and Lipitor. The patient's troponins peaked at 4.88 shortly after admission. A transthoracic echocardiogram was obtained and revealed an ejection fraction of 30% to 35%. The patient tolerated medical management alone. She did not have any evidence of arrhythmias. She has been up and ambulating post [place] without any chest pain or any more weakness than normal. At baseline, the patient was able to ambulate approximately 10 feet. She has been doing this in the hospital. She also worked with PT on the day of discharge and was able to do 10 steps. The patient due to the large STEMI was felt to be at risk for mural thrombus formation; however, she is also felt to be a risky candidate for Coumadin. Because of this, the decision was made to treat the patient with aspirin and Plavix. The patient does follow with Dr. Nazario from Cardiology and it has been recommended that she follow up with him in approximately 1 to 2 weeks. The patient's simvastatin dose was increased to 40 mg daily. She was continued on her usual doses of aspirin and metoprolol XL. Nitroglycerin patch has been added. In terms of the patient's history of hypertension, her blood pressure was under acceptable control ranging from typically the the mid 100s to 140 systolic. I have discontinued her lisinopril and hydrochlorothiazide. If the patient's blood pressure is consistently in the 140 to 150 range, low-dose lisinopril could be added back especially given her systolic dysfunction. There has been no evidence of fluid overload at this time. I did discuss at length with the patient's family a no added salt/low-salt diet. We discussed the importance of following this diet as she is at high risk for developing systolic congestive heart failure. We also discussed signs of heart failure including orthopnea and lower extremity swelling. The patient's family will be monitoring for the symptoms and bring her back to the emergency room if she develops any of them. The patient will be resumed on her usual dose of metformin 500 mg p.o. twice daily. Her blood sugars were under excellent control in the hospital off the metformin. She can follow with her primary care provider for this. On the last 2 days of the patient's hospitalization, her biggest complaint was of right arm pain. She had decreased range of motion involving the right shoulder, which made me suspect possible rotator cuff injury. X-ray was performed and revealed a high riding humeral head relative to the bony glenoid labrum. This can be seen in the setting of degenerative rotator cuff instability. The patient had been moving furniture prior to this event and also had a fall. Perhaps chronic injury was exacerbated making this pain worse. I talked to the patient's family about using Tylenol for pain control. On the day of discharge, the patient is awake, alert. Hemodynamically, she has been stable. Her cardiac exam revealed a normal S1, S2 with a regular rate and rhythm. Her lungs were clear. She had no lower extremity edema. FOLLOWUP CONCERNS: The patient is being discharged home today, 03/05/19. Activity level is as tolerated. Diet is no added salt/low salt. Condition on discharge is guarded but stable. The patient should follow up with Dr. Preeti Padgett in the next 4 to [address] Nazario in the next 1 to 2 weeks. Again, the patient's family was instructed to have the patient brought back to the emergency room for any chest pain, shortness of breath, orthopnea or lower extremity edema. TIME SPENT: Forty minutes were spent discharging this patient. [id number]/CPS #: [id number] MTDD
== END 2019-03-05 18:24 | disposition home health service (06) | DRG 281 ==
LOC: ED 13:02 → ICU 16:50 → MEDTELE 03-03 14:25
PROVIDERS: ADMIT Internal Medicine; ATTEND Hospitalist
DX: I21.3 ST elevation (STEMI) myocardial infarction of unspecified site (principal); N17.9 Acute kidney failure, unspecified; I11.0 Hypertensive heart disease with heart failure; I50.9 Heart failure, unspecified; E11.9 Type 2 diabetes mellitus without complications; E78.5 Hyperlipidemia, unspecified; R42 Dizziness and giddiness; J30.2 Other seasonal allergic rhinitis; M17.10 Unilateral primary osteoarthritis, unspecified knee; M89.8X1 Other specified disorders of bone, shoulder; M25.511 Pain in right shoulder; I08.0 Rheumatic disorders of both mitral and aortic valves; Z79.84 Long term (current) use of oral hypoglycemic drugs; Z79.82 Long term (current) use of aspirin; Z79.899 Other long term (current) drug therapy; Z82.49 Family history of ischemic heart disease and other diseases of the circulatory system
CPT/HCPCS: 36415; 71045; 80048; 80053; 80061; 82550; 82553; 83605; 83721; 83880; 84450; 84460; 84484; 85025; 85610; 85730; 86850; 86900; 86901; 87641; 93005; 93306; 99285; A9270-GY; G8987-GO-CK; G8988-GO-CJ; G8989-GO-CK; J1644; J2270; J2405

== ENCOUNTER 2019-03-28 13:33 | Emergency (ER) | payer MEDICARE ==
--- OUTSIDE RECORDS SUMMARY | 2019-03-28 13:55 | XMS REPORT | Continuity of Care Document ---
:1930 External Reference #:[id number] Author Name Preeti Padgett M.D. Address [address] [facility] [place] [address] Care Team Providers Name Role Phone Preeti Padgett M.D. 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 Primary Care Physician Unavailable Payers Date Identification Numbers Payment Provider Subscriber Effective: 2017 Policy Number: [id number] Medicare [facility] Tequila Ponce PayID: [id number] [address] [place] [address] Effective: 2017 Policy Number: [id number] [place] Tequila Ponce PayID: [id number] [address] [facility] [place] [address] Problems Active Problems Provider Date Mixed hyperlipidemia Preeti Padgett M.D. Onset: 08/21/2015 Essential hypertension Preeti Padgett M.D. Onset: 08/21/2015 Type 2 diabetes mellitus Preeti Padgett M.D. Onset: 08/21/[address] segment elevation myocardial infarction Preeti Padgtet M.D. Onset: Coronary arteriosclerosis Preeti Padgett M.D. Onset: 03/08/2019 Family History Date Family Member(s) Observation Comments Father Heart Disease Father due to [place] () Mother due to Unknown Causes () First Son No Current Problems Social History Type Date Description Comments Sex Unknown Marital Status Legal Status: Lives With Son and daughter in law Diet Healthy, Well Balanced Occupation Retired Tobacco Use Start: Unknown Never Smoked Cigarettes ETOH Use Occasional 3-4x a week Allergies, Adverse Reactions, Alerts Description No Known Drug Allergies Medications Active Medications SIG Qnty Indications Ordering Provider Date Metformin HCL 1/2 tab by mouth 180tabs E11.9 Preeti Padgett, 11/30/2017 1000mg twice a day M.D. Tablets Simvastatin take 1 tablet by 90tabs E78.2 [facility] 11/30/2017 40mg mouth at bedtime M.D. Tablets Freestyle System test blood sugar 1units [facility] 05/28/2017 Kit once a day M.D. dx:e11.9 Freestyle Lite Test test bld sugar 100units [facility] 05/28/2017 once a day - M.D. Strips dx: e11.9- last office visit 05/25/17 Multi For Her 50+ 1 tab a day 90caps [facility] 05/25/2017 M.D. Capsules Rafy Microlet test daily 100units [facility] 05/25/2017 Lancets M.D. Misc Aspirin Adult Low 1 po qd Unknown Strength 81mg Tablets DR Metoprolol Succinate 1 by mouth every Unknown ER day 25mg Tablets ER 24HR Plavix 1 by mouth every Unknown 75mg Tablets day Nitro-Dur on for 12 hrs, Unknown 0.1mg/HR off for 12 hrs Patches 24HR Tylenol 8 Hour 1 po q 4 hr prn Unknown Arthritis Pain pain 650mg Tablets ER History Medications Lisinopril 1 by mouth I10 [facility] 11/06/2018 - 20mg Tablets every day M.D. 03/08/2019 Lisinopril 1/2 tab by 90tabs I10 [facility] 11/06/2018 - 40mg Tablets mouth every day M.D. 03/08/2019 Hydrochlorothiazide 1/2 tab by 90tabs I10 [facility] 11/30/2017 - 25mg Tablets mouth every day M.D. 03/08/2019 Lisinopril 1/2 tab by 90tabs I10 [facility] 11/30/2017 - 40mg Tablets mouth every day M.D. 11/06/2018 Lisinopril 1 by mouth 90tabs I10 [facility] 12/18/2016 - 20mg Tablets every day M.D. 11/30/2017 Blood Pressure Cuff take blood I10 [facility] 12/16/2016 - pressure daily M.D. 11/29/2017 Rafy Contour Blood use as directed 1units E11.9 [facility] 12/16/2016 - Glucose Monitoring System test once a day M.D. 12/31/2016 w/Device Kit Rafy Contour Blood test blood 100unit E11.9 [facility] 12/16/2016 - Glucose Test Strips glucose daily s M.D. 05/28/2017 Strips Ciclopirox once a day to 6.600ml B35.1 [facility] 12/16/2016 - 8% Solution toenails M.D. 11/06/2018 Metoprolol Succinate ER 1 by mouth 30tabs I49.1 [facility] 08/21/2015 - 25mg every day M.D. 12/16/2015 Tablets ER 24HR Losartan Potassium 1 by mouth 90tabs [facility] 08/21/2015 - 50mg Tablets every day M.D. 08/21/2015 Hydrochlorothiazide 1 by mouth 90tabs I10 [facility] 08/21/2015 - 12.5mg every day M.D. 11/30/2017 Tablets Lisinopril 1 by mouth 90tabs I10 [facility] 08/21/2015 - 10mg Tablets every day M.D. 12/18/2016 Simvastatin 1 by mouth 90tabs E78.2 [facility] - 20mg Tablets every day M.D. 11/30/2017 Losartan 1 by mouth 90tabs I10 [facility] - Potassium/Hydrochlorothiaz every day M.D. 08/21/2015 mame 50-12.5mg Tablets Metformin HCL 1 by mouth 180tabs E11.9 [facility] - 500mg Tablets twice a day M.D. 11/30/2017 Immunizations CPT Code Status Date Vaccine Lot # [id number] Given 11/06/2018 High-Dose, Influenza Virus Vacccine-fluzone 65 and [id number] older [id number] Given 05/25/2017 Pneumococcal Conjugate Vacc-13 [id number] Vital Signs Date Vital Result Comment 03/08/2019 11:57am BP Systolic 94 mmHg BP Diastolic 38 mmHg Heart Rate 60 /min Body Temperature 97.8 F Respiratory Rate 16 /min Height 57 inches 4'9" measured 05/25/17 11/06/2018 5:52pm BP Systolic 114 mmHg BP Diastolic 60 mmHg Heart Rate 90 /min Body Temperature 97.9 F Respiratory Rate 16 /min Height 57 inches 4'9" measured 05/25/17 Weight 104.25 lb BMI (Body Mass Index) 22.6 kg/m2 11/30/2017 4:00pm BP Systolic 124 mmHg BP Diastolic 60 mmHg Heart Rate 96 /min Body Temperature 98.4 F Height 57 inches 4'9" measured 05/25/17 Weight 106.00 lb BMI (Body Mass Index) 22.9 kg/m2 05/25/2017 3:24pm BP Systolic 158 mmHg BP Diastolic 60 mmHg Heart Rate 66 /min Body Temperature 98.8 F Respiratory Rate 16 /min Height 57 inches 4'9" measured 05/25/17 Weight 106.50 lb BMI (Body Mass Index) 23.0 kg/m2 12/16/2016 5:47pm BP Systolic 170 mmHg BP Diastolic 90 mmHg Heart Rate 88 /min Body Temperature 98.5 F Respiratory Rate 16 /min Height 58 inches 4'10" Weight 107.00 lb BMI (Body Mass Index) 22.4 kg/m2 05/07/2016 1:45pm BP Systolic 120 mmHg BP Diastolic 70 mmHg Heart Rate 76 /min Body Temperature 98.1 F Respiratory Rate 18 /min Height 58 inches 4'10" Weight 99.00 lb BMI (Body Mass Index) 20.7 kg/m2 12/16/2015 2:20pm BP Systolic 128 mmHg BP Diastolic 70 mmHg Heart Rate 60 /min Irr Body Temperature 97.9 F Height 58 inches 4'10" Weight 97.50 lb BMI (Body Mass Index) 20.4 kg/m2 08/21/2015 4:34pm BP Systolic 134 mmHg BP Diastolic 72 mmHg Heart Rate 72 /min Body Temperature 99.1 F Respiratory Rate 16 /min Height 58 inches 4'10" Weight 98.06 lb BMI (Body Mass Index) 20.5 kg/m2 Results Test Date Facility Test Result H/L Range Note Laboratory test 03/02/2019 [facility] 4.11 ng/mL High <0.04 1 finding CKMB 03/02/2019 [facility] ng/mL 23.4 ng/mL High 0.6-6.3 Laboratory test 03/02/2019 [facility] LDL Cholesterol 43 mg/dL 2 finding Direct Creatine Kinase(CK) 396 U/L High 10-223 Comp Metabolic Panel 03/02/2019 [facility] Sodium 129 mmol/L Low 135-145 Potassium 3.8 mmol/L N 3.5-5.0 Chloride 96 mmol/L Low 101-111 Co2 Carbon Dioxide 22 mmol/L N 22-32 Anion Gap 11 mmol/L N 2-11 Glucose 138 mg/dL High 70-100 Blood Urea Nitrogen 28 mg/dL High 6-24 Creatinine 1.12 mg/dL High 0.51-0.95 BUN/Creatinine Ratio 25.0 High 8-20 Calcium 9.5 mg/dL N 8.6-10.3 Total Protein 7.2 g/dL N 6.4-8.9 Albumin 4.1 g/dL N 3.2-5.2 Globulin 3.1 g/dL N 2-4 Albumin/Globulin Ratio 1.3 N 1-3 Total Bilirubin 0.60 mg/dL N 0.2-1.0 Alkaline Phosphatase 50 U/L N 34-104 Alt 16 U/L N 7-52 Ast 35 U/L N 13-39 Egfr Non- 45.9 >60 Egfr 55.6 >60 3 Laboratory test finding 03/02/2019 [facility]roponin-I (TnI) 4.88 ng/mL High < 0.04 4 CBC Auto Diff 03/02/2019 [facility] White Blood Count 10.1 10^3/uL N 3.5-10.8 Red Blood Count 3.72 10^6/uL N 3.70-4.87 Hemoglobin 11.3 g/dL Low 12.0-16.0 Hematocrit 33 % Low 35-47 Mean Corpuscular Volume 89 fL N 80-97 Mean Corpuscular Hemoglobin 30 pg N 27-31 Mean Corpuscular HGB Conc 34 g/dL N 31-36 Red Cell Distribution Width 13 % N 10.5-15 Platelet Count 311 10^3/uL N 150-450 Mean Platelet Volume 7.6 fL N 7.4-10.4 Abs Neutrophils 8.2 10^3/uL High 1.5-7.7 Abs Lymphocytes 1.1 10^3/uL N 1.0-4.8 Abs Monocytes 0.7 10^3/uL N 0-0.8 Abs Eosinophils 0.0 10^3/uL N 0-0.6 Abs Basophils 0.1 10^3/uL N 0-0.2 Abs Nucleated RBC 0.0 10^3/uL Granulocyte % 81.4 % Lymphocyte % 11.3 % Monocyte % 6.7 % Eosinophil % 0.1 % Basophil % 0.5 % Nucleated Red Blood Cells % 0.0 Inr/Protime 03/02/2019 [facility] Inr 1.02 N 0.82-1.09 5 Laboratory test finding 03/02/2019 [facility] Lactic Acid 2.5 mmol/L High 0.5- 2.0 6 Type & Screen 03/02/2019 [facility] Patient Blood Type O Positive Antibody Screen NEGATIVE Laboratory test finding 03/02/2019 [facility] Partial Thrombo Time 37.7 seconds N 26.0-38.0 PTT B-Type Natriuretic Peptide BNP 241 pg/mL High <=100 Comprehensive Metabolic 11/08/2018 [facility] Ch[facility]) Sodium 142 mEq/L 134-149 Prof Potassium 4.5 mEq/L 3.6-5.5 Chloride 107 mEq/L 94-112 Carbon Dioxide 26 mEq/L 21-32 Glucose 118 mg/dL High 70-105 7 BUN 22 mg/dL 6-26 Creatinine 1.1 mg/dL 0.6-1.4 BUN/Creat Ratio 20.0 CALC 8.0-36.0 Calcium 8.8 mg/dL 8.6-10.2 Total Protein 7.0 g/dL 6.4-8.3 Albumin 4.2 g/dL 3.8-5.5 Globulin 2.8 g/dL 2.0-4.8 A/G Ratio 1.5 CALC 0.6-2.3 Alk. Phosphatase 54 U/L 30-110 Alt (SGPT) 10 U/L 7-35 Ast (Sgot) 19 U/L 5-34 Total Bilirubin 0.5 mg/dL 0.2-1.3 GFR Non- 50 ml/min/1.73m^ Low >=60 GFR 60 ml/min/1.73m^ >=60 Laboratory test 11/08/2018 [facility] Hemoglobin A1c 6.1 % % High 4.1-5.7 finding (607)- - (Fma) Lipid Profile 11/08/2018 [facility] Chavez([facility]) Cholesterol 148 mg/dL 120- 200 Triglycerides 167 mg/dL 30-200 HDL Cholesterol 53 mg/dL 30-85 LDL (Calculated) 62 CALC 0-129 VLDL Cholesterol 33 mg/dL 0-50 HDL Risk Factor 2.8 CALC 0.0-4.4 Laboratory test finding 11/08/2018 [facility] Chavez(fma) TSH 3.75 mIU/L 0.50-6.00 CBC Electronic a 11/08/2018 Conner Kathy(a) WBC 6.3 x10^3/UL 4.0- 10.0 RBC 3.40 x10^6/UL Low 3.93-6.00 HGB 10.7 g/dL Low 12.0-17.0 HCT 33 % Low 35-50 MCV 96.5 fL High 80.0-95.0 MCH 31.5 pg 25.6-32.2 MCHC 32.6 g/dL 32.2-36.0 RDW-CV 12.6 % 11.6-14.4 PLT 294 x10^3/UL 163-400 MPV 9.9 fL 9.4-12.4 Chirag# 3.37 x10^3/UL 1.56-6.13 Lymph# 2.13 x10^3/UL 1.18-3.74 Power# 0.54 x10^3/UL 0.24-0.82 Eos # 0.2 x10^3/UL 0.0-0.5 Baso # 0.03 x10^3/UL 0.01-0.08 Chirag% 53.3 % 34.0-70.0 Lymph % 33.8 % 20.0-52.0 Power% 8.6 % 5.0-12.0 Eos% 3.6 % 0.7-7.0 Baso% 0.5 % 0.1-1.2 Laboratory test 11/30/2017 [facility] Hemoglobin A1c 6.4 % High 4.1- 5.7 finding (607)- - (a) Laboratory test 05/25/2017 [facility] Hemoglobin A1c 6.0 % High 4.1- 5.7 finding (607)- - (a) Laboratory test 12/18/2016 [facility] Hemoglobin A1c 5.7 % 4.1-5.7 finding (607)- - (a) Microalb, Random (Fma/CMC/CTX) 61.5 mg/L High 0.5-37 Lipid Profile 12/18/2016 Conner Kathy(a) Cholesterol 186 mg/dL 120- 200 Triglycerides 222 mg/dL High 30-200 HDL Cholesterol 65 mg/dL 30-85 LDL (Calculated) 77 CALC 0-129 VLDL Cholesterol 44 mg/dL 0-50 HDL Risk Factor 2.9 CALC 0.0-4.4 Comprehensive Metabolic 12/18/2016 Conner Kathy([facility]) Sodium 140 mEq/L 134-149 Prof Potassium 4.6 mEq/L 3.6-5.5 Chloride 102 mEq/L 94-112 Carbon Dioxide 26 mEq/L 21-32 Glucose 132 mg/dL High 70-105 8 BUN 19 mg/dL 6-26 Creatinine 1.1 mg/dL 0.6-1.4 BUN/Creat Ratio 17.3 CALC 8.0-36.0 Calcium 9.9 mg/dL 8.6-10.2 Total Protein 7.7 g/dL 6.4-8.3 Albumin 4.6 g/dL 3.8-5.5 Globulin 3.1 g/dL 2.0-4.8 A/G Ratio 1.5 CALC 0.6-2.3 Alk. Phosphatase 57 U/L 30-110 Alt (SGPT) 12 U/L 7-35 Ast (Sgot) 21 U/L 5-34 Total Bilirubin 0.6 mg/dL 0.2-1.3 GFR Non- 50 ml/min/1.73m^ Low >=60 GFR >60 ml/min/1.73m^ >=60 CBC Electronic ([facility]) 12/18/2016 [facility] WBC 5.5 3.6-9.6 (607)- - RBC 3.98 3.90-5.70 Hemoglobin (Fma/CMC/CTX) 12.5 g/dL 12.1 - 17.2 Hematocrit (a/CMC/CTX) 37.0 % 36.1 - 50.3 Platelets 263 10^3/ul 150-400 Lymph% 37.6 % 17.0-48.0 Mixed% 4.5 Neutrophils % 57.9 Mean Corpuscular Vol 93 82.2-97.4 Mean Corpuscular Hemoglobin 31.3 27.6-33.3 Mean Corpuscular Hemo Concen 33.6 32.0-36.0 RDW 14.0 High 11.6-13.7 Mean Platelet Volume 7.9 5.5-11.0 Urinalysis Profile 11/20/2016 [facility] Urine Color Yellow N 9 Urine Appearance Cloudy N Urine Specific [place] 1.015 N 1.010-1.030 Urine pH 5.0 N 5-9 Urine Urobilinogen Negative N Negative Urine Ketones Negative N Negative Urine Protein Negative N Negative Urine Leukocytes Trace Abnormal Negative Urine Blood Negative N Negative * * Abnormal Negative 10 Urine Nitrite Negative N Negative Urine Bilirubin Negative N Negative Urine Glucose Negative N Negative Urine White Blood Cell 1+(6-10/hpf) Abnormal Absent Urine Red Blood Cell Absent N Absent Urine Bacteria Absent N Absent Urine Squamous Epithelial Cell Present Abnormal Absent Laboratory test 11/20/2016 [facility] Urine Culture And SEE RESULT 11 finding Sensitivities BELOW Comprehensive 05/08/2016 Ubaldo Kathy(fma) Sodium 139 mEq/L 134-1 Metabolic Prof 49 Potassium 4.1 mEq/L 3.6-5.5 Chloride 106 mEq/L 94-112 Carbon Dioxide 27 mEq/L 21-32 Glucose 117 mg/dL High 70-105 BUN 37 mg/dL High 6-26 12 Creatinine 1.1 mg/dL 0.6-1.4 BUN/Creat Ratio 33.6 CALC 8.0-36.0 Calcium 9.7 mg/dL 8.6-10.2 Total Protein 7.2 g/dL 6.4-8.3 Albumin 4.1 g/dL 3.8-5.5 Globulin 3.1 g/dL 2.0-4.8 A/G Ratio 1.3 CALC 0.6-2.3 Alk. Phosphatase 52 U/L 30-110 Alt (SGPT) 10 U/L 7-35 Ast (Sgot) 19 U/L 5-34 Total Bilirubin 0.4 mg/dL 0.2-1.3 GFR Non- 50 ml/min/1.73m^ Low >=60 GFR >60 ml/min/1.73m^ >=60 Lipid Profile 05/08/2016 Ubaldo Kathy(fma) Cholesterol 174 mg/dL 120- 200 Triglycerides 101 mg/dL 30-200 HDL Cholesterol 62 mg/dL 30-85 LDL (Calculated) 92 CALC 0-129 VLDL Cholesterol 20 mg/dL 0-50 HDL Risk Factor 2.8 CALC 0.0-4.4 Laboratory test 05/08/2016 [facility] Hemoglobin A1c 5.8 % High 4.1- 5.7 finding (607)- - (Fma) Laboratory test 12/16/2015 [facility] Hemoglobin A1c 6.0 % High 4.1- 5.7 finding (607)- - (Fma) Comp. Metabolic 08/27/2015 [facility] Glucose, Serum 124 mg/dL High 65-99 13 Panel (14) [address] [place] [address] (607)- - BUN 10 mg/dL 8-27 Creatinine, Serum 0.72 mg/dL 0.57-1.00 eGFR If NonAfricn Am 77 mL/min/1.73 >59 eGFR If Africn Am 88 mL/min/1.73 >59 BUN/Creatinine Ratio 14 11-26 Sodium, Serum 136 mmol/L 134-144 Potassium, Serum 4.1 mmol/L 3.5-5.2 Chloride, Serum 94 mmol/L Low 97-108 Carbon Dioxide, Total 23 mmol/L 18-29 Calcium, Serum 9.7 mg/dL 8.7-10.3 Protein, Total, Serum 6.9 g/dL 6.0-8.5 Albumin, Serum 4.6 g/dL 3.5-4.7 Globulin, Total 2.3 g/dL 1.5-4.5 A/G Ratio 2.0 1.1-2.5 Bilirubin, Total 0.5 mg/dL 0.0-1.2 Alkaline Phosphatase, S 46 IU/L 39-117 Ast (Sgot) 20 IU/L 0-40 Alt (SGPT) 11 IU/L 0-32 Lipid Panel 08/27/2015 [facility] Cholesterol, Total 149 mg/dL 550-077 [address] [place] [address] (607)- - Triglycerides 122 mg/dL 0-149 HDL Cholesterol 58 mg/dL >39 14 VLDL Cholesterol Davi 24 mg/dL 5-40 LDL Cholesterol Calc 67 mg/dL 0-99 Comment: DNR CBC With 08/27/2015 [facility] WBC 5.0 x10E3/uL 3.4-10.8 Differential/Platelet [address] [place] [address] (607)- - RBC 4.13 x10E6/uL 3.77-5.28 Hemoglobin 12.8 g/dL 11.1-15.9 Hematocrit 38.8 % 34.0-46.6 MCV 94 fL 79-97 MCH 31.0 pg 26.6-33.0 MCHC 33.0 g/dL 31.5-35.7 RDW 13.5 % 12.3-15.4 Platelets 278 x10E3/uL 150-379 Neutrophils 64 % Lymphs 31 % Monocytes 4 % Eos 1 % Basos 0 % Immature Cells DNR Neutrophils (Absolute) 3.2 x10E3/uL 1.4-7.0 Lymphs (Absolute) 1.5 x10E3/uL 0.7-3.1 Monocytes(Absolute) 0.2 x10E3/uL 0.1-0.9 Eos (Absolute) 0.1 x10E3/uL 0.0-0.4 Baso (Absolute) 0.0 x10E3/uL 0.0-0.2 Immature Granulocytes 0 % Immature Grans (Abs) 0.0 x10E3/uL 0.0-0.1 NRBC DNR Hematology Comments: DNR Urinalysis, 08/27/2015 [facility] Specific 1.008 1.005-1.030 Complete [address] [facility] [place] [address] (606)- - pH 6.5 5.0-7.5 Urine-Color Yellow Yellow Appearance Clear Clear WBC Esterase 2+ Abnormal Negative Protein Trace Negative/Trace Glucose Negative Negative Glucose Reflex DNR Ketones Negative Negative Occult Blood Negative Negative Bilirubin Negative Negative Urobilinogen,Semi-Qn 0.2 EU/dL 0.2-1.0 Nitrite, Urine Negative Negative Microscopic Examination DNR Microscopic Examination See below: Laboratory test 08/27/2015 [facility] TSH 2.660 0.450-4.[address] [place] [address] uIU/mL [address] (607)- - Hemoglobin A1c 08/27/2015 [facility] Hemoglobin A1c 5.8 % High 4.8-5.6 15 [address] [place] [address] (607)- - Microscopic 08/27/2015 [facility] Reflex See Examination [address] [place] [address] Microscopic below: [id number] Examination (591)- - WBC 11-30 /hpf Abnormal 0 - 5 RBC 0-2 /hpf 0 - 2 Epithelial Cells (non renal) 0-10 /hpf 0 - 10 Epithelial Cells (renal) DNR Casts DNR Cast Type DNR Crystals DNR Crystal Type DNR Mucus Threads Present Not Estab. Bacteria Few None seen/Few Yeast DNR Trichomonas DNR Comment DNR 1 Result TnIDx:4.11 Called to [id number] at: 14:05:01 by:[id number] Read back by: [id number] Troponin-I testing on Plasma Separator Tubes (PST) has a known false positive rate of 0.20-0.40%. All positive troponins reflex immediately to secondary confirmatory testing. Using the [employer] DxI 800 Access Immunoassay systems, the 99th percentile upper reference limit was demonstrated to be < 0.03 ng/mL. 2 Desirable: <100 Near Optimal: 100-129 Borderline High: 130-159 High: 160-189 Very High: >189 3 Because ethnic data is not always readily available, this report includes an eGFR for both -Americans and non- Americans. The National Kidney Disease Education Program (NKDEP) does not endorse the use of the MDRD equation for patients that are not between the ages of 18 and 70, are , have extremes of body size, muscle mass, or nutritional status, or are non- or non-. According to the National Kidney Foundation, irrespective of diagnosis, the stage of the disease is based on the level of kidney function: Stage Description GFR(mL/min/1.73 m(2)) 1 Kidney damage with normal or decreased GFR 90 2 Kidney damage with mild decrease in GFR 60-89 3 Moderate decrease in GFR 30-59 4 Severe decrease in GFR 15-29 5 Kidney failure <15 (or dialysis) 4 Result TnIDx:4.88 Called to [id number] at: 18:37:34 by:[id number] Read back by: [id number] Troponin-I testing on Plasma Separator Tubes (PST) has a known false positive rate of 0.20-0.40%. All positive troponins reflex immediately to secondary confirmatory testing. Using the [employer] DxI 800 Access Immunoassay systems, the 99th percentile upper reference limit was demonstrated to be < 0.03 ng/mL. 5 Standard intensity warfarin therapeutic range: 2.0-3.0 High intensity warfarin therapeutic range: 2.5-3.5 6 Critical Result LACT:2.5 Called to [id number] at: 14:05:20 by:[id number] Read back by:[id number] [place] Severe Sepsis and Septic Shock Management Bundle Measure requires all lactic acids initially measuring >2.0 mmol/L be repeated. 7 consistent w/ previous results 8 consistent w/ previous results 9 [id number] 10 *Ascorbic acid is present which may interfere with detection of blood. 11 SEE RESULT BELOW Name: TEQUILA PONCE : [address]: Victoria Sparks Acct: [id number] Unit: [id number] AGE: 86 Location: [facility] Re11/20/16 SEX: F Status: DEP ER SPEC: [id number] LEILA: 11/20/16-[address] [facility] [address]: Victoria Willett DO REQ: [id number] RECD: 11/21/16 STATUS: ESTRELLITA DIAZ DR: Preeti Padgett MD _ SOURCE: URINE SPDESC: ORDERED: Urine Culture COMMENTS: [id number] Procedure Result Reported Site Urine Culture Final 11/22/16- 1210 ML No Growth (<1,000 CFU/mL) * ML - MAIN LAB ([facility]) . END OF REPORT * ML=Testing performed at Main Lab DEPARTMENT OF PATHOLOGY, [address] [place] [address] Maciel Espinal M.D. Director [facility] # [id number] 12 RESULTS VERIFIED BY REPEAT ANALYSIS 13 2 SSTS 14 According to ATP-III Guidelines, HDL-C >59 mg/dL is considered a negative risk factor for CHD. 15 Pre-diabetes: 5.7 - 6.4 Diabetes: >6.4 Glycemic control for adults with diabetes: <7.0 Procedures Date Code Description Status 11/30/2017 82017 Finger Or Heel Stick Completed 05/25/2017 27455 Finger Or Heel Stick Completed 12/16/2015 05097 Finger Or Heel Stick Completed 08/21/2015 33612 Electrocardiogram Complete Completed Encounters Type Date Location Provider Dx Diagnosis Office Visit 11/06/2018 Main Office Preeti Padgett M.D. I10 Essential ( primary) 5:40p hypertension E11.9 Type 2 diabetes mellitus without complications E78.2 Mixed hyperlipidemia Z23 Encounter for immunization Office Visit 11/30/2017 4:00p [facility] Office Preeti Padgett E11.9 Type 2 diabetes M.DShayan mellitus without complications I10 Essential (primary) hypertension E78.2 Mixed hyperlipidemia Office Visit 05/25/2017 4:00p [facility] Office Preeti Padgett Z00.00 Encntr graciela Armas general adult medical exam w/o abnormal findings I10 Essential (primary) hypertension E11.9 Type 2 diabetes mellitus without complications E78.2 Mixed hyperlipidemia 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 at [facility] Fnjuys3103/08/2019 - Preeti Padgett M.D.I25.10 Atherosclerotic heart disease of [place] coronary artery without angina pectorisComments:continue present medication,will call if there is any increase in the frequency or severity of anginaFollow up:[address] elevation (Stemi) myocardial infarction of anterior wallComments:following cardiology, discussed stroke [place] [id number] Type 2 diabetes mellitus without complicationsComments:Recommend yearly diabetic eye and foot exams, and check on blood pressure periodically. Goal blood sugar is less than 140 in the morning or A1c less than 7. Recommend monitoring portion size, decreased carbohydrate intake (breads, pasta, rice, candy, desserts, and sweetened beverages/alcohol) and routine daily exercise.E78.2 Mixed hyperlipidemiaComments:dose increased to 65vgB30 Essential (primary) hypertensionComments:Recommend low salt/cardiac diet and routine [id number] Pain in right shoulderComments:1000mg acetaminophen 4x a day, physical therapy to start not a surgical candidateAllComments:Medication Management Patient Understands medications she's taking? Yes No Are there Barriers to Adherence? Yes No Has the patient been asked about herbal supplements and therapies, and OTC meds? Yes No
--- NOTE | 2019-03-28 14:28 | ED ---
Palpitations / Dysrhythmia - HPI Summary HPI Summary: The pt is an 88 y/o F presenting to [facility] with her son and grandson with a CC of palpitations. She was in the hospital earlier this month for a heart attack, pt recovered well and was keeping up with her medication. [place] well until this morning. She was taking a shower and afterwards felt that her heart was palpitating and pounding around 1100 this morning. She was feeling fine when she first woke up at 0900 1000 and was watching TV. She reported getting dizzy and shaking during the episode. She denies any CP during the episode. The symptoms she had today were similar to the heart attack symptoms. She denies any N/V/D, fever, SOB, diaphoresis, and new rashes. She also states having a cough. She has a PMHx of diabetes and states that she feels fine. Her symptoms are aggravated by exertion and alleviated by rest. - History of Current Complaint Chief Complaint: EDChestPainROMI Time Seen by Provider: 03/28/19 14:08 Hx Obtained From: Family/Scanning Clerk Hx From Patient Unobtainable Due To: Other - Pt can't speak danish Onset/Duration: Sudden Onset, Lasting Hours, Resolved Severity Initially: Moderate Severity Currently: Moderate Character: Pounding Aggravating: Exertion Alleviating: Rest Associated Signs & Symptoms: Negative - N/V/D, fever, SOB, diaphoresis, and new rashes, Dizzy - Allergy/Home Medications Allergies/Adverse Reactions: Allergies Allergy/AdvReac Type Severity Reaction Status Date / Time No Known Allergies Allergy Verified 11/20/16 17:15 PMH/Surg Hx/FS Hx/Imm Hx Previously Healthy: No Endocrine/Hematology History: Reports: Hx Diabetes Denies: Hx Blood Transfusions, Hx Anemia Cardiovascular History: Reports: Hx Hypercholesterolemia, Hx Hypertension Denies: Hx Angina, Hx Coronary Artery Disease, Hx Deep Vein Thrombosis, Hx Myocardial Infarction, Hx Valvular Heart Disease Respiratory History: Reports: Hx Seasonal Allergies, Other Respiratory Problems/ Disorders - chronic cough Denies: Hx Asthma, Hx Chronic Obstructive Pulmonary Disease (COPD), Hx Pneumonia GI History: Reports: Hx Gastroesophageal Reflux Disease Sensory History: Reports: Hx Contacts or Glasses Denies: Hx Hearing Aid Opthamlomology History: Reports: Hx Contacts or Glasses Neurological History: Reports: Other Neuro Impairments/Disorders - confusion - Surgical History Surgery Procedure, Year, and Place: bilateral cataract removal Infectious Disease History: No Infectious Disease History: Denies: Traveled Outside the [place] in Last 30 Days - Family History Known Family History: Positive: Hypertension, Diabetes Negative: Cardiac Disease - Social History Alcohol Use: Occasionally Alcohol Amount: 3-4/week (One every other day). Hx Substance Use: No Substance Use Type: Reports: None Hx Tobacco Use: No Smoking Status (MU): Never Smoked Tobacco Review of Systems Negative: Fever, Fatigue, Skin Diaphoresis Positive: Palpitations - pounding. Negative: Chest Pain Positive: Cough. Negative: Shortness Of Breath Negative: Vomiting, Diarrhea, Nausea Negative: Rash All Other Systems Reviewed And Are Negative: Yes Physical Exam - Summary Physical Exam Summary: Appearance: Well-appearing, Well-nourished, lying in bed comfortably Skin: Warm, dry, no obvious rash Eyes: sclera anicteric, no conjunctival pallor ENT: mucous membranes moist, pharynx appears normal Neck: Supple, nontender Respiratory: Clear to auscultation, no signs of respiratory distress Cardiovascular: Normal S1, S2. No murmurs. Normal distal pulses in tibial and radial bilaterally. Abdomen: Soft, nontender, normal active bowel sounds present Musculoskeletal: Normal, Strength/ROM Intact Neurological: A&Ox3, awake and alert, mentation is normal, speech is fluent and appropriate Psychiatric: affect is normal, does not appear anxious or depressed Triage Information Reviewed: Yes Vital Signs On Initial Exam: Initial Vitals Temp Pulse Resp BP Pulse Ox 97.4 F 68 14 150/58 96 03/28/19 13:43 03/28/19 13:43 03/28/19 13:43 03/28/19 13:43 03/28/19 13:43 Vital Signs Reviewed: Yes Diagnostics - Vital Signs Vital Signs Temp Pulse Resp BP Pulse Ox 03/28/19 13:43 97.4 F 68 14 150/58 96 - Laboratory Result Diagrams: 03/28/19 14:20 03/28/19 14:20 Lab Statement: Any lab studies that have been ordered have been reviewed, and results considered in the medical decision making process. - EKG 1349 Cardiac Rate: NL - 72 EKG Rhythm: Sinus Rhythm ST Segment: Normal Ectopy: None Summary of EKG Findings: NSR at 72 BPM, P waves, QRS complex, and T waves are within normal limits, recent T wave inversions that are consistent with recent ND. This is a normal EKG. Interpreted by Dr. Weller 1353 03/28/[address] Constantino 175 03/28/19. Course/Dx - Course Course Of Treatment: The pt is an 88 y/o F presenting to [facility] with her son and grandson with a CC of palpitations. She was in the hospital earlier this month for a heart attack, pt recovered well and was keeping up with her medication. [place] well until this morning. She was taking a shower and afterwards felt that her heart was palpitating and pounding around 1100 this morning. Her PE showed no abnormal findings. Her EKG shows a NSR at 72 BPM, P waves, QRS complex, and T waves are within normal limits, recent T wave inversions that are consistent with recent ND. This is a normal EKG. She had no abnormal lab findings and a normal EKG so the pt will be discharged home with a Dx of chest palpitations. - Diagnoses Provider Diagnoses: Palpitations Discharge - Sign-Out/Discharge Documenting (check all that apply): Patient Departure Patient Received Moderate/Deep Sedation with Procedure: No - Discharge Plan Condition: Stable Disposition: HOME Patient Education Materials: Heart Palpitations (ED) Referrals: Seth Nazario MD [Medical Doctor] - 2 Days - Billing Disposition and Condition Condition: STABLE Disposition: Home - Attestation Statements Document Initiated by Ramiro: Yes Documenting Scribe: Nathan Bazan Provider For Whom Ramiro is Documenting (Include Credential): Alexey Constantino MD Scribe Attestation: Nathan Riley, scribed for Alexey Constantino MD on 03/30/19 at 0537. Scribe Documentation Reviewed: Yes Provider Attestation: The documentation as recorded by the Nathan solitario accurately reflects the service I personally performed and the decisions made by , Alexey Constantino MD Status of Scribe Document: Viewed
[2019-03-28 14:36] LABS: ABS Basophils 0.1 10^3/ul (0-0.2); ABS Eosinophils 0.1 10^3/ul (0-0.6); ABS Lymphocytes 1.6 10^3/ul (1.0-4.8); ABS Monocytes 0.5 10^3/ul (0-0.8); ABS Neutrophils 5.6 10^3/ul (1.5-7.7); Eosinophil % 1.2 %; Hematocrit 34 % (35-47); Hemoglobin 11.8 g/dL (12.0-16.0); Lymphocyte % 20.4 %; Mean Corpuscular HGB Conc 34 g/dL (31-36); Mean Corpuscular Hemoglobin 30 pg (27-31); Mean Corpuscular Volume 88 fL (80-97); Platelet Count 312 10^3/uL (150-450); Red Blood Count 3.93 10^6 /uL (3.70-4.87); Red Cell Distribution Width 14 % (10-15); White Blood Count 7.9 10^3/uL (3.5-10.8)
[2019-03-28 14:43] LABS: INR 1.02 (0.82-1.09)
[2019-03-28 14:55] LABS: Albumin 4.1 g/dL (3.2-5.2); Albumin/Globulin Ratio 1.2 (1-3); BUN/Creatinine Ratio 27.6 (8-20); Calcium 10.1 mg/dL (8.6-10.3); EGFR African American 48.1 (>60); EGFR Non-African American 39.7 (>60); Globulin 3.5 g/dL (2-4); Total Bilirubin 0.4 mg/dL (0.2-1.0); Total Protein 7.6 g/dL (6.4-8.9)
[2019-03-28 14:57] LABS: Troponin I 0.03 ng/mL (<0.04)
[2019-03-28 15:01] LABS: Potassium 5.3 mmol/L (3.5-5.0)
[2019-03-28 18:17] VITALS: BP 141/70
== END 2019-03-28 18:17 | disposition home or self-care (01) ==
LOC: ED 13:33
DX: R00.2 Palpitations (principal); E11.9 Type 2 diabetes mellitus without complications; E78.00 Pure hypercholesterolemia, unspecified; I10 Essential (primary) hypertension; I25.2 Old myocardial infarction; R07.9 Chest pain, unspecified; Z79.82 Long term (current) use of aspirin; Z79.84 Long term (current) use of oral hypoglycemic drugs; Z79.02 Long term (current) use of antithrombotics/antiplatelets
CPT/HCPCS: 36415; 80053; 84484; 85025; 85610; 93005; 99283

== ENCOUNTER 2019-04-06 11:45 | Observation (INO) | payer MEDICARE ==
[2019-04-06] MEDS ORDERED: NS 0.9% 1000 ML** 1,000 ML IV ONE ×2 (11:54→14:47)
--- NOTE | 2019-04-06 12:03 | ED ---
Complex/Multi-Sys Presentation - HPI Summary HPI Summary: This pt is an 88 y/o female presenting to [facility] via EMS for increased general weakness. Pt does not speak Cape Verdean. EMS reports pt comes in today for several days of increased weakness and decreased energy level. Per EMS, family reported pt has been feeling dizzy and is worry she might fall. Hx of recent UTI. EMS states pt has had decreased appetite as well as decreased fluid intake. Per EMS , blood glucose is 119. She lives at home with family but has a visiting nurse. Visiting nurse called EMS today and she is worried that patient may be dehydrated. Pt is a full code but is DNI. PMHx of GA in January [address] family [address] Hair decided not to proceed with the laboratory tech. - History Of Current Complaint Time Seen by Provider: 04/06/19 11:48 Hx Obtained From: EMS Onset/Duration: Lasting Days, Still Present Timing: Days Severity Currently: Moderate Aggravating Factor(s): nothing Alleviating Factor(s): nothing Associated Signs And Symptoms: Positive: Dizziness, Weakness - generalized, Other - POSITIVE: decreased appetite.. Negative: Fever - Allergies/Home Medications Allergies/Adverse Reactions: Allergies Allergy/AdvReac Type Severity Reaction Status Date / Time No Known Allergies Allergy Verified 11/20/16 17:15 PMH/Surg Hx/FS Hx/Imm Hx Endocrine/Hematology History: Reports: Hx Diabetes Denies: Hx Blood Transfusions, Hx Anemia Cardiovascular History: Reports: Hx Hypercholesterolemia, Hx Hypertension Denies: Hx Angina, Hx Coronary Artery Disease, Hx Deep Vein Thrombosis, Hx Myocardial Infarction, Hx Valvular Heart Disease Respiratory History: Reports: Hx Seasonal Allergies, Other Respiratory Problems/ Disorders - chronic cough Denies: Hx Asthma, Hx Chronic Obstructive Pulmonary Disease (COPD), Hx Pneumonia GI History: Reports: Hx Gastroesophageal Reflux Disease Sensory History: Reports: Hx Contacts or Glasses Denies: Hx Hearing Aid Opthamlomology History: Reports: Hx Contacts or Glasses Neurological History: Reports: Other Neuro Impairments/Disorders - confusion - Surgical History Surgery Procedure, Year, and Place: bilateral cataract removal Infectious Disease History: No Infectious Disease History: Denies: Traveled Outside the [place] in Last 30 Days - Family History Known Family History: Positive: Hypertension, Diabetes Negative: Cardiac Disease - Social History Alcohol Use: Occasionally Alcohol Amount: 3-4/week (One every other day). Hx Substance Use: No Substance Use Type: Reports: None Hx Tobacco Use: No Smoking Status (MU): Never Smoked Tobacco Review of Systems Constitutional: Other - POSITIVE: decreased appetite Negative: Fever Neurological: Other - POSITIVE: dizziness, weakness All Other Systems Reviewed And Are Negative: Yes Physical Exam - Summary Physical Exam Summary: VITAL SIGNS: Reviewed. GENERAL: Patient is a well-developed and elderly female who is lying comfortable in the stretcher. Patient is not in any acute respiratory distress. Patient seems weak. HEAD AND FACE: No signs of trauma. No ecchymosis, hematomas or skull depressions. No sinus tenderness. EYES: PERRLA, EOMI x 2, No injected conjunctiva, no nystagmus. EARS: Hearing grossly intact. Ear canals and tympanic membranes are within normal limits. MOUTH: Oropharynx within normal limits. NECK: Supple, trachea is midline, no adenopathy, no JVD, no carotid bruit, no c- spine tenderness, neck with full ROM. CHEST: Symmetric, no tenderness at palpation LUNGS: Clear to auscultation bilaterally. No wheezing or crackles. CVS: Regular rate and rhythm, S1 and S2 present, no murmurs or gallops appreciated. ABDOMEN: Soft, non-tender. No signs of distention. No rebound, no guarding, and no masses palpated. Bowel sounds are normal. EXTREMITIES: FROM in all major joints, no edema, no cyanosis or clubbing. NEURO: Alert and oriented x 3. No acute neurological deficits. Speech is normal and follows commands. SKIN: Dry and warm GCS: 15 Triage Information Reviewed: Yes Vital Signs On Initial Exam: Initial Vitals Temp Pulse Resp BP Pulse Ox 98.8 F 69 21 126/60 96 04/06/19 11:54 04/06/19 11:54 04/06/19 11:54 04/06/19 11:54 04/06/19 11:54 Vital Signs Reviewed: Yes Diagnostics - Vital Signs Vital Signs Temp Pulse Resp BP Pulse Ox 04/06/19 11:54 98.8 F 69 21 126/60 96 - Laboratory Result Diagrams: 04/06/19 12:15 04/06/19 12:15 Lab Statement: Any lab studies that have been ordered have been reviewed, and results considered in the medical decision making process. - Radiology Chest XR Radiology Interpretation Completed By: Radiologist Summary of Radiographic Findings: IMPRESSION: No evidence for active cardiopulmonary disease. Dr. Ospina has reviewed this report. - CT Brain CT CT Interpretation Completed By: Radiologist Summary of CT Findings: IMPRESSION: 1. No evidence for acute intracranial findings. 2. Old lacunar infarcts. 3. Atrophy and findings most consistent with moderate chronic small vessel ischemic changes. Dr. Ospina has reviewed this report. - EKG 11:58 Cardiac Rate: NL - at 60 bpm EKG Rhythm: Sinus Rhythm EKG Comparison: No Significant Change - similar to previous EKG on 03/28/19. Summary of EKG Findings: No ST elevations. Inverted T wave in leads I, II, V2- V6. Complex Multi-Symp Course/Dx Assessment/Plan: This pt is an 88 y/o female presenting to [facility] via EMS for increased general weakness. Pt does not speak [place]. EMS reports pt comes in today for several days of increased weakness and decreased energy level. Per EMS , family reported pt has been feeling dizzy and is worried she might fall. Hx of recent UTI. EMS states pt has had decreased appetite as well as decreased fluid intake. Per EMS, blood glucose is 119. She lives at home with family but has a visiting nurse. Visiting nurse called EMS today and she is worried that patient may be dehydrated. Pt is a full code but is DNI. PMHx of GA in January [address] Hair decided not to proceed with the laboratory tech. Blood work without any significant abnormality except for sodium 128, potassium 5.2, chloride 97, carbon dioxide is 20, BUN is 49, creatinine 1.12, glucose 119 , lactic acid is 2.9, magnesium was 1.8, AST 114 and AST is 56, CPK is 2217, troponin 0.07, BNP is 190, urinalysis positive for UTI. He seems that the patient has a UTI for which the patient was given Rocephin. The patient's total CPK is elevated therefore consistent with rhabdomyolysis for which the patient was given IV fluids. The patient was also dehydrated since the BUN and creatinine is elevated. The patients troponin is also elevated therefore the patient was given an aspirin. I discussed my physical exam and test results with Dr. Ramirez from the hospitalist services and she agrees to admit patient to her services. Patient is hemodynamically stable, alert and oriented x 3. - Diagnoses Provider Diagnoses: UTI (urinary tract infection), Elevated troponin I level, Rhabdomyolysis, Dehydration, Hypomagnesemia - Physician Notifications Discussed Care Of Patient With: Lorelei Ramirez - hospitalist Time Discussed With Above Provider: 14:35 Instructed by Provider To: Admit As Inpatient Discharge - Sign-Out/Discharge Documenting (check all that apply): Patient Departure - Admit to [facility] Patient Received Moderate/Deep Sedation with Procedure: No - Discharge Plan Condition: Stable Disposition: ADMITTED TO [facility] - Billing Disposition and Condition Condition: STABLE Disposition: Admitted to [facility] - Attestation Statements Document Initiated by Scribe: Yes Documenting Scribe: Chery Clancy Provider For Whom Scribe is Documenting (Include Credential): Zac Ospina MD Scribe Attestation: Chery Riley scribed for Zac Ospina MD on 04/06/19 at 2103. Scribe Documentation Reviewed: Yes Provider Attestation: The documentation as recorded by the Chery solitario accurately reflects the service I personally performed and the decisions made by Zac kelley MD Status of Scribe Document: Viewed
[2019-04-06 12:32] LABS: ABS Basophils 0.1 10^3/ul (0-0.2); ABS Eosinophils 0.1 10^3/ul (0-0.6); ABS Lymphocytes 1.7 10^3/ul (1.0-4.8); ABS Monocytes 0.5 10^3/ul (0-0.8); ABS Neutrophils 6.1 10^3/ul (1.5-7.7); Eosinophil % 1.2 %; Hematocrit 36 % (35-47); Lymphocyte % 19.7 %; Mean Corpuscular HGB Conc 34 g/dL (31-36); Mean Corpuscular Hemoglobin 30 pg (27-31); Mean Corpuscular Volume 89 fL (80-97); Mean Platelet Volume 8.2 fL (7.4-10.4); Platelet Count 304 10^3/uL (150-450); Red Blood Count 4.02 10^6 /uL (3.70-4.87); Red Cell Distribution Width 14 % (10-15); White Blood Count 8.4 10^3/uL (3.5-10.8)
[2019-04-06 12:56] LABS: Urine Appearance Cloudy; Urine Bacteria 1+ (Absent); Urine Bilirubin Negative (Negative); Urine Blood 2+ (Negative); Urine Color Yellow; Urine Glucose Negative (Negative); Urine Ketones Negative (Negative); Urine Nitrite Positive (Negative); Urine Protein Negative (Negative); Urine Red Blood Cell 1+(3-5/hpf) (Absent); Urine Specific Gravity 1.014 (1.010-1.030); Urine Squamous Epithelial Cell Present (Absent); Urine Urobilinogen Negative (Negative); Urine White Blood Cell 3+(>20/hpf) (Absent)
[2019-04-06 12:57] LABS: ALT 56 U/L (7-52); AST 114 U/L (13-39); Albumin 4.1 g/dL (3.2-5.2); Albumin/Globulin Ratio 1.2 (1-3); Alkaline Phosphatase 58 U/L (34-104); BUN/Creatinine Ratio 43.8 (8-20); Blood Urea Nitrogen 49 mg/dL (6-24); C Reactive Protein 1.26 mg/L (<8.01); CO2 Carbon Dioxide 20 mmol/L (22-32); Calcium 10.1 mg/dL (8.6-10.3); Chloride 97 mmol/L (101-111); EGFR African American 55.6 (>60); EGFR Non-African American 45.9 (>60); Globulin 3.3 g/dL (2-4); Glucose 119 mg/dL (70-100); Magnesium 1.8 mg/dL (1.9-2.7); Sodium 128 mmol/L (135-145); Total Protein 7.4 g/dL (6.4-8.9)
[2019-04-06 12:58] LABS: Anion Gap 11 mmol/L (2-11); Potassium 5.2 mmol/L (3.5-5.0)
[2019-04-06 13:04] LABS: Troponin I 0.07 ng/mL (<0.04)
[2019-04-06 13:12] LABS: Creatine Kinase 2217 U/L (10-223)
[2019-04-06 13:18] LABS: TSH (Thyroid Stimulating Horm) 3.61 mcIU/mL (0.34-5.60)
[2019-04-06] MEDS ORDERED: cefTRIAXone(*) 1 GM in NS 0.9% 50 ML* 50 ML IVPB ONE (14:29)
[2019-04-06] MEDS ORDERED: Aspirin 81 mg CHEW TAB* 81 MG TAB.CHEW PO ONE (14:47)
[2019-04-06] MEDS ORDERED: Al Hydrox/Mg Hydrox/Simet LIQ* 30 ML UDC PO PRN (15:10)
[2019-04-06] MEDS ORDERED: Acetaminophen TAB* 325 MG PO PRN (15:10)
[2019-04-06] MEDS ORDERED: Dextrose 50% Syringe 50 ML* 25 GM/50 ML SYRINGE IV PUSH PRN (15:48)
[2019-04-06 15:49] LABS: Troponin I 0.07 ng/mL (<0.04)
[2019-04-06] MEDS ORDERED: Enoxaparin(*) 30 MG/0.3 ML SYR SUBCUT SCH (16:00)
--- NOTE | 2019-04-06 16:44 | HP ---
CC: Dr. Padgett * HISTORY AND PHYSICAL: DATE OF ADMISSION: 04/06/19 TIME OF ADMISSION: 3:30 p.m. PRIMARY CARE PHYSICIAN: Dr. Padgett. CHIEF COMPLAINT: "She is so weak, she couldn't walk." HISTORY OF PRESENT ILLNESS: This is an 88-year-old woman with a history of coronary artery disease and a recent STEMI, who presents to the emergency department with weakness since yesterday. The history is provided entirely by her son. Ms. Riddle speaks a version of Cantonese that is not available in our public health officer system and her history is also limited by dementia. Her son, Dion is here with her and lives with her and is with her 24 hours a day and he explains that since yesterday when she woke up, she has had complaints of fatigue, sleepiness, and weakness. She has not had any falls. She normally gets around with a walker, but she has been leaning more heavily on it over the past day. She has been sleeping all day and all night, which is unusual for her and she has been needing more help with her ADLs like going to the bathroom which is also unusual for her. She normally is able to walk about 60 feet without assistance and without trouble, but the last day she has not been able to do this walk around their house that they normally do due to weakness. I asked her pointed questions via her son, but she does not answer most of them and answers with "thank you." Her son says that she has not been complaining of any shortness of breath, chest pain, headache, dizziness, fevers, chills, nausea, vomiting, diarrhea, cough, cold, dysuria and that she has had no other complaints besides feeling tired and weak. PAST MEDICAL HISTORY: Coronary artery disease with a recent STEMI in January 2019, systolic heart failure, hypertension, hyperlipidemia, and type 2 diabetes. PAST SURGICAL HISTORY: Cataracts. HOME MEDICATIONS: 1. Simvastatin 40 mg q.h.s. 2. Toprol-XL 25 mg daily. 3. Metformin 500 mg b.i.d. 4. Aspirin 81 mg daily. 5. Nitroglycerin patch 0.1 mg per hour 1 patch topically daily, on for 12 hours , off for 12 hours. 6. Plavix 75 mg daily. 7. Tylenol 650 mg q.4 p.r.n. pain. ALLERGIES: None. FAMILY HISTORY: Unknown. SOCIAL HISTORY: She lives with her son, Dion, who is with her nearly 24 hours a day. They have VNS that comes in twice a week. She does not smoke. She is normally able to complete her ADLs independently and requires assistance with her IADLs. REVIEW OF SYSTEMS: As per the HPI. Remainder of the 14-point review of systems is negative. PHYSICAL EXAMINATION GENERAL: Alert, elderly female in no distress. She is resting comfortably in the bed and is very pleasant. She repeatedly says "thank you" to most every question. VITAL SIGNS: Temperature 98.8, heart rate 77, respiratory rate 19, pulse ox 99 % on room air, blood pressure 130/64. HEENT: Pupils are 2 mm bilaterally. The right has a hazy white film inferiorly. She has no nystagmus. Oral mucosa is dry. NECK: JVP to 10 cm. CHEST: She is in a regular rate and rhythm with no murmurs. LUNGS: Her lungs are clear bilaterally. ABDOMEN: She has no CVA tenderness. It is soft, nontender, and nondistended. EXTREMITIES: No edema, rashes, or ulcers. NEUROLOGIC: Her face is symmetric. She has no nystagmus. She moves all extremities spontaneously; however, her lower extremity strength is 3/5 while her upper extremity strength is 5/5. She does have trouble with participation and I cannot test coordination. She is able to communicate freely with her son in Cantonese. However, he explains that she often says non-sensible things which is her baseline. DIAGNOSTIC STUDIES/LAB DATA: Sodium 128, potassium 5.2, chloride 97, bicarb 20 , BUN 49, creatinine 1.12, glucose 118, lactic acid 2.9, magnesium 1.8. ALT 56 , AST 114. CK 2217, troponin 0.07. CRP 1.26. TSH 3.61. Urinalysis, blood 2+, nitrite positive, leukocyte esterase 3+, white blood cells 3+, bacteria 1+, white blood cells 8.4, hemoglobin 12.0, platelets 304. Imaging: Chest x-ray, no evidence for active cardiopulmonary disease. EKG, normal sinus rhythm, normal axis, normal intervals, no Qs, diffuse T-wave inversions across the precordium. This is unchanged from her EKG on 03/28/19. Brain CT, no evidence for acute intracranial abnormality, old lacunar infarcts and atrophy and findings most consistent with moderate chronic small vessel ischemic changes. ASSESSMENT AND PLAN: This is an 88-year-old female with history of a recent ST segment elevation myocardial infarction and diabetes, who presents to the emergency department with 1 day of weakness and fatigue and is found to have a urinary tract infection. 1. Weakness. Brain CT is negative for acute cerebrovascular accident and her neurologic exam is difficult, but nonfocal. I added on an ESR, which is within normal limits to rule out an inflammatory myopathy. At this point, the most glaring finding is a denise urinary tract infection and she has received 1 dose of ceftriaxone in the emergency department and 1 L of IV fluids. She does not meet SIRS criteria, but her lactate is mildly elevated and I will repeat that now. She also has an elevated CK which may be contributing to her weakness, though she denies any muscle pain and she denies any recent falls. The differential may also include other metabolic syndromes; however, her hyponatremia is chronic. Her renal function is at baseline. So at this point, I think the urinary tract infection is the most likely contributor to her weakness over the last day. I will also order a physical therapy consult to help with strengthening and ADLs. 2. Elevated creatinine kinase. This may be a reflection of statin use in the setting of mildly elevated transaminases and I will hold this for now. She has received 1 L of IV fluids in the emergency department and I will continue them gently now. I will hold her statin and repeated in the morning. 3. Elevated troponin. Her EKG is unchanged from prior and she has had no chest pain throughout this episode of weakness over the last day. I will trend her troponins, monitor her on telemetry, and continue her home medications except for the statin. 4. Diabetes. Hold metformin and order fingersticks. 5. DVT prophylaxis. Hany. [id number]/[facility] #: [id number] RADHA
[2019-04-06] MEDS: NS 0.9% 1000 ML** 1,000 ML IV SCH (17:01)
[2019-04-06] MEDS: Insulin LISPRO* 1 UNITS UNIT SUBCUT SCH ×2 (17:04→20:45)
[2019-04-06 17:58] LABS: Erythrocyte Sed Rate 64 mm/Hr (0-29)
[2019-04-06] MEDS ORDERED: hydrALAZINE IV* 20 MG/ML VIAL IV SLOW PU PRN (19:31)
[2019-04-06 21:55] LABS: Troponin I 0.07 ng/mL (<0.04)
[2019-04-07] MEDS: NS 0.9% 1000 ML** 1,000 ML IV SCH (03:02)
[2019-04-07 06:05] LABS: ABS Eosinophils 0.1 10^3/ul (0-0.6); ABS Lymphocytes 1.7 10^3/ul (1.0-4.8); ABS Monocytes 0.5 10^3/ul (0-0.8); ABS Neutrophils 4.2 10^3/ul (1.5-7.7); Eosinophil % 1.3 %; Hematocrit 31 % (35-47); Hemoglobin 10.5 g/dL (12.0-16.0); Lymphocyte % 25.8 %; Mean Corpuscular HGB Conc 34 g/dL (31-36); Mean Corpuscular Hemoglobin 30 pg (27-31); Mean Corpuscular Volume 88 fL (80-97); Mean Platelet Volume 8.2 fL (7.4-10.4); Nucleated Red Blood Cells % 0.1; Platelet Count 275 10^3/uL (150-450); Red Blood Count 3.47 10^6 /uL (3.70-4.87); Red Cell Distribution Width 14 % (10-15); White Blood Count 6.4 10^3/uL (3.5-10.8)
[2019-04-07 06:14] LABS: BUN/Creatinine Ratio 28.1 (8-20); EGFR African American 72.4 (>60); EGFR Non-African American 59.9 (>60); Potassium 3.8 mmol/L (3.5-5.0)
[2019-04-07] MEDS: Insulin LISPRO* 1 UNITS UNIT SUBCUT SCH ×2 (07:57→11:18)
--- NOTE | 2019-04-07 08:17 | PN ---
Subjective Date of Service: 04/07/19 Interval History: Overnight, was noted to be hypertensive to 200 systolic. Order for hydralazine was entered but not given and BP resolved without intervention. Walks to the bathroom with assistance. Her son thinks she is back to her baseline. He has no concerns. SHe has no complaints. Objective Active Medications: Acetaminophen (Tylenol Tab*) 650 mg PO Q4H PRN PRN Reason: FEVER/PAIN Al Hydrox/Mg Hydrox/Simethicone (Maalox Plus*) 30 ml PO Q6H PRN PRN Reason: INDIGESTION Aspirin (Aspirin 81 Mg Chew Tab*) 81 mg PO DAILY [facility] Last Admin: 04/07/19 08:04 Dose: 81 mg Clopidogrel Bisulfate (Plavix Tab*) 75 mg PO DAILY [facility] Last Admin: 04/07/19 08:04 Dose: 75 mg Dextrose (D50w Syringe 50 Ml*) 12.5 gm IV PUSH .FOR FS < 60 - SS PRN PRN Reason: FS < 60 Enoxaparin Sodium (Lovenox(*)) 30 mg SUBCUT Q24H [facility] Last Admin: 04/06/19 15:39 Dose: 30 mg Hydralazine HCl (Apresoline Iv*) 5 mg IV SLOW PU Q6H PRN PRN Reason: Systolic Bp Greater Than:160 Last Admin: 04/06/19 19:51 Dose: 5 mg Ceftriaxone Sodium 1 gm/ (Sodium Chloride) 50 mls @ 200 mls/hr IVPB Q24H [facility] Sodium Chloride (Ns 0.9% 1000 Ml) 1,000 mls @ 100 mls/hr IV PER RATE [facility] Last Admin: 04/07/19 03:02 Dose: 100 mls/hr Insulin Human Lispro (Humalog*) 0 units SUBCUT ACHS [facility]; Protocol Last Admin: 04/07/19 07:57 Dose: Not Given Metoprolol Succinate (Toprol Xl Tab*) 25 mg PO DAILY [facility] Last Admin: 04/07/19 08:04 Dose: 25 mg Nitroglycerin (Nitroglycerin 2.5 Mg Patch*) 1 patch TRANSDERM DAILY@0900 [facility] Last Admin: 04/07/19 08:08 Dose: 1 patch Pharmacy Profile Note (Nitro Patch/Oint Remove*) 1 note PATCH OFF Q24H [facility] Vital Signs - 8 hr 0704/07/19 04/07/19 03:43 07:15 08:09 Temperature 98 F 98.8 F Pulse Rate 68 66 78 Respiratory 24 20 Rate Blood Pressure 114/44 110/33 135/51 (mmHg) O2 Sat by Pulse 98 99 Oximetry Oxygen Devices in Use Now: None Appearance: alert, well appearing Eyes: No Scleral Icterus Ears/Nose/Mouth/Throat: NL Teeth, Lips, Gums Neck: NL Appearance and Movements; NL JVP Respiratory: Symmetrical Chest Expansion and Respiratory Effort Cardiovascular: - - short systolic murmur Abdominal: NL Sounds; No Tenderness; No Distention Lymphatic: No Cervical Adenopathy Extremities: No Edema Skin: No Rash or Ulcers Neurological: - - strength 4/5 throughout, has trouble with comprehending commands so neuro exam is limited Result Diagrams: 04/07/19 05:32 04/07/19 05:32 Assess/Plan/Problems-Billing Assessment: - Patient Problems (1) UTI (urinary tract infection) Current Visit: Yes Status: Acute Comment: ceftriaxone day 2 micro pending no sepsis (2) Weakness Current Visit: Yes Status: Acute Code(s): R53.1 - WEAKNESS SNOMED Code(s) : 02435515 Comment: nonfocal neuro exam, seems more related to fatigue. also with elevated CK but normal ESR, effectively ruling out an inflammatory myopathy CT head is abnormal but with chronic changes may be related to UTI appreciate PT eval (3) CAD (coronary artery disease) Current Visit: Yes Status: Acute Code(s): I25.10 - ATHSCL HEART DISEASE OF [place] CORONARY ARTERY W/O ANG PCTRS SNOMED Code(s): 67611915 Comment: with recent stemi continue asa, bb (statin on hold due to elevated CK) (4) Diabetes Current Visit: No Status: Acute Code(s): E11.9 - TYPE 2 DIABETES MELLITUS WITHOUT COMPLICATIONS SNOMED Code(s): 27621174 Comment: continue fingersticks (5) HTN (hypertension) Current Visit: No Status: Acute Code(s): I10 - ESSENTIAL (PRIMARY) HYPERTENSION SNOMED Code(s): 01195866 Comment: with an isolated htn episode overnight that resolved without intervention
[2019-04-07] MEDS ORDERED: Metoprolol Succinate XL TAB* 25 MG PO SCH (09:00)
[2019-04-07] MEDS ORDERED: Clopidogrel TAB* 75 MG PO SCH (09:00)
[2019-04-07] MEDS ORDERED: Nitroglycerin 0.1 mg/Hr PATCH* (2.5 MG) TRANSDERM SCH (09:00)
[2019-04-07] MEDS ORDERED: Aspirin 81 mg CHEW TAB* 81 MG TAB.CHEW PO SCH (09:00)
[2019-04-07 09:05] LABS: Albumin 3.3 g/dL (3.2-5.2); Albumin/Globulin Ratio 1.3 (1-3); Globulin 2.6 g/dL (2-4); Indirect Bilirubin 0.3 mg/dL (0.3-1.0); Total Bilirubin 0.4 mg/dL (0.2-1.0); Total Protein 5.9 g/dL (6.4-8.9)
[2019-04-07] MEDS ORDERED: NS 0.9% 1000 ML** 1,000 ML IV SCH (11:00)
[2019-04-07 12:23] VITALS: BP 138/41
[2019-04-07] MEDS ORDERED: cefTRIAXone(*) 1 GM in NS 0.9% 50 ML* 50 ML IVPB SCH (14:00)
--- NOTE | 2019-04-07 14:13 | DS ---
CC: Dr. Preeti Padgett * DISCHARGE SUMMARY: DATE OF ADMISSION: 04/06/19 DATE OF DISCHARGE: 04/07/19 PRINCIPAL DISCHARGE DIAGNOSES: 1. Acute cystitis. 2. Elevated CK. 3. Weakness. 4. Hyponatremia. 5. Acute kidney injury. 6. Elevated troponin. SECONDARY DISCHARGE DIAGNOSES: 1. Coronary artery disease with recent ST-elevation myocardial infarction. 2. Chronic systolic heart failure. 3. Dementia. 4. Diabetes. 5. Hypertension. MEDICATIONS AT DISCHARGE: 1. Aspirin 81 mg daily. 2. Multivitamin half a tab daily. 3. Metformin 500 mg b.i.d. 4. Toprol-XL 25 mg daily. 5. Tylenol 650 q.4 p.r.n. pain. 6. Plavix 75 mg daily. 7. Nitroglycerin 0.1 mg per hour patch, 1 patch transdermally daily at 9 o' clock, on for 12 hours, off for 12 hours. 8. Bactrim DS 1 tab b.i.d. for 3 more days. Discontinued medication: Simvastatin 40 mg. PHYSICAL EXAMINATION: Please see my progress note from this morning. HOSPITAL COURSE BY PROBLEM: 1. Weakness. Ms. Riddle presented to the emergency department with 1 day of fatigue and lethargy. She did have some objective weakness on neurologic exam at admission; however, her son explained that she had trouble comprehending the commands for a neuro exam. She was able to walk around the room and to the hallway at her baseline and with no difficulties and by the second day of admission, her strength had resolved and she was back to baseline. The etiology was likely related to a UTI versus elevated CK; however, I favor the UTI as she improved very quickly after 1 dose of IV antibiotics. 2. Acute cystitis. Her urine culture is still pending at the time of discharge. She received 2 doses of ceftriaxone inpatient and I am discharging her on 3 more days and treating this as a complicated UTI. 3. Elevated CK. Her son reported no falls and her inflammatory markers were negative; therefore, ruling out an inflammatory myopathy, I discontinued her statin and her CK was coming down on day 2 of admission. I am keeping her statin on hold and this should be reevaluated when she follows up with Cardiology. 4. Acute kidney injury. This resolved with IV fluids. 5. Hyponatremia. This also resolved with IV fluids. 6. Elevated troponin. Her troponin stayed at 0.07 x3. Her EKG was unchanged from prior and she had no cardiac symptoms. 7. Coronary artery disease. She was continued on aspirin, Plavix, Toprol, and her statin was held as above. This can be reevaluated in the future. DISPOSITION: She is being discharged to home with her son. She has been evaluated by PT and is noted to be at her baseline functional capacity. CONDITION AT THE TIME OF DISCHARGE: Fair. [id number]/[facility] #: [id number] RADHA
[2019-04-07] MEDS ORDERED: Nitro Patch/OINT Remove PATCH OFF SCH (21:00)
== END 2019-04-07 13:00 | disposition home or self-care (01) ==
LOC: ED 11:45 → MEDTELE 15:51
PROVIDERS: ADMIT Internal Medicine; ATTEND Internal Medicine
DX: N30.00 Acute cystitis without hematuria (principal); R53.1 Weakness; N17.9 Acute kidney failure, unspecified; E87.1 Hypo-osmolality and hyponatremia; I25.10 Atherosclerotic heart disease of native coronary artery without angina pectoris; I50.22 Chronic systolic (congestive) heart failure; F03.90 Unspecified dementia, unspecified severity, without behavioral disturbance, psychotic disturbance, mood disturbance, and anxiety; E11.9 Type 2 diabetes mellitus without complications; I10 Essential (primary) hypertension; Z79.82 Long term (current) use of aspirin; R79.89 Other specified abnormal findings of blood chemistry; E86.0 Dehydration; K21.9 Gastro-esophageal reflux disease without esophagitis; I25.2 Old myocardial infarction; E78.5 Hyperlipidemia, unspecified
CPT/HCPCS: 36415; 70450; 71046; 80048; 80053; 80076; 81003; 81015; 82550; 83605; 83735; 83880; 84443; 84484; 85025; 85652; 86140; 87040; 87077; 87086; 87186; 93005; 96365; 96372; 96375; 99285; A9270-GY; G0378; G8978-GP-CI; G8979-GP-CI; G8980-GP-CI; J0360; J0696; J1650

== ENCOUNTER 2019-08-21 13:39 | Emergency (ER) | payer MEDICARE, MEDICAID ==
--- NOTE | 2019-08-21 13:40 | UC ---
Head Injury HPI - HPI Summary HPI Summary: 89 yo female presents with head injury. She does not speak [place], thus the history is provided by her son with her today and he is translating. He tells me that they were in the parking lot of our clinic and pt was walking inside and sustained a mechanical fall landing on her buttocks, back, and hitting the back of her head on the ground. No LOC. Witnessed. Pt was able to get to her feet with assistance of her family with her. Currently complains of head pain at impact site. She takes ASA and plavix for CHF and coronary stents. Denies dizziness, vision changes, neck pain, back pain, numbness, tingling. - History Of Current Complaint Stated Complaint: HEAD INJURY Time Seen by Provider: 08/21/19 13:40 Hx Obtained From: Family/Rn Neonatal Hx From Patient Unobtainable Due To: Other - Language barrier Onset/Duration: Sudden Onset Severity Currently: Mild Severity Initially: Mild Pain Intensity: 4 Pain Scale Used: 0-10 Numeric - Allergies/Home Medications Allergies/Adverse Reactions: Allergies Allergy/AdvReac Type Severity Reaction Status Date / Time No Known Allergies Allergy Verified 08/21/19 13:45 Home Medications: Home Medications traZODone TAB* [Desyrel TAB*] 75 mg PO BEDTIME 08/21/19 [History Confirmed 08/21] PMH/Surg Hx/FS Hx/Imm Hx Endocrine History: Diabetes Cardiovascular History: Cardiac Disease, Hypertension, Congestive Heart Failure - Surgical History Surgical History: Yes Surgery Procedure, Year, and Place: bilateral cataract removal - Family History Known Family History: Positive: Hypertension, Diabetes Negative: Cardiac Disease - Social History Lives: With Family Alcohol Use: Occasionally Alcohol Amount: 3-4/week (One every other day). Substance Use Type: None Smoking Status (MU): Never Smoked Tobacco - Immunization History Most Recent Influenza Vaccination: 2018 Most Recent Pneumonia Vaccination: unknown Review of Systems All Other Systems Reviewed And Are Negative: No Constitutional: Positive: Negative Skin: Positive: Negative Eyes: Positive: Negative ENT: Positive: Negative Respiratory: Positive: Negative Cardiovascular: Positive: Negative Gastrointestinal: Positive: Negative Genitourinary: Positive: Negative Motor: Positive: Negative Neurovascular: Positive: Negative Musculoskeletal: Positive: Negative Neurological: Positive: Headache Psychological: Positive: Negative Physical Exam - Summary Physical Exam Summary: GENERAL: NAD. WDWN. No pain distress. SKIN: No rashes, sores, ulcers, masses, lesions. HEENT: Head: Left occipital scalp with 3.0cm hematoma. Mild TTP. No open wound or laceration. Eyes: PERRLA. EOM intact. Ears: Hearing grossly normal. TMs intact, no bulging, erythema, or edema. No hemotympanum Nose: Nasal mucosa pink and moist. NTTP maxillary and frontal sinus. Throat: Posterior oropharynx without exudates, erythema, or tonsillar enlargement. Uvula midline. NECK: Supple. Nontender. FROM CHEST: CTAB. No r/r/w. No accessory muscle use. Breathing comfortably and in no distress. CV: RRR. Pulses intact. Brisk cap refill. ABDOMEN: Soft. NTTP. Bowel sounds present MSK: FROM in B/L UEs and LEs with symmetric strength. NEURO: Difficult to assess given language barrier. No facial asymmetry. Forehead wrinkles. Grins, shuts eyes, frowns, puffs cheeks. Spikzv-ug-[id number] are intact. Romberg: maintains balance, no pronator drift. Normal speech. No facial drooping. PSYCH: Age appropriate behavior. Triage Information Reviewed: Yes Vital Signs: Vital Signs: Temp Pulse Resp BP Pulse Ox 98.2 F 57 20 195/77 99 08/21/19 13:45 08/21/19 13:45 08/21/19 13:45 08/21/19 13:45 08/21/19 13:45 Vital Signs Reviewed: Yes Head Injury Course/Dx - Course Course Of Treatment: Given age and head injury with anticoagulants - recommend transfer to the ED for likely CT and observation over concerns for internal bleed. Son voiced understanding and agrees with the plan. Pt left via [place] in stable condition - BP noted to be elevated. Report called to Dr. Heard in the ED - Differential Dx/Diagnosis Provider Diagnosis: Head injury, Fall Discharge ED - Sign-Out/Discharge Documenting (check all that apply): Patient Departure All imaging exams completed and their final reports reviewed: No Studies - Discharge Plan Condition: Stable Disposition: TRANS HIGHER LVL OF CARE FAC Referrals: Preeti Padgett MD [Primary Care Provider] - - Billing Disposition and Condition Condition: STABLE Disposition: Trans Higher Lvl of Care Fac
[2019-08-21 13:52] VITALS: BP 195/77
== END 2019-08-21 14:20 | disposition short-term general hospital (02) ==
LOC: UCEAST 13:39
DX: S09.90XA Unspecified injury of head, initial encounter (principal); E11.9 Type 2 diabetes mellitus without complications; I11.0 Hypertensive heart disease with heart failure; W18.30XA Fall on same level, unspecified, initial encounter; Y93.01 Activity, walking, marching and hiking; Y92.481 Parking lot as the place of occurrence of the external cause
CPT/HCPCS: 99213; G0463

== ENCOUNTER 2019-08-21 14:41 | Emergency (ER) | payer MEDICARE, MEDICAID ==
[2019-08-21] MEDS ORDERED: Lisinopril TAB* 10 MG PO ONE (14:59)
--- NOTE | 2019-08-21 15:00 | ED ---
Head Injury - HPI Summary HPI Summary: Patient is an 89 y/o F presenting to the ED via EMS for a chief complaint of pain in the back of the head. Patient is present with her son who is translating for the patient. Patient's son states that the patient was at [facility] [employer] in the bathroom when she tripped, fell, and hit the back of her head. Patient is now reporting pain in the back of the head. Patient denies syncope, neck pain, chest pain, or shortness of breath. Patient rates the pain as 5/10 in severity. She recently had a medication change for a PMHx of hypertension. PMHx is also significant for a myocardial infarction in January 2019. Currently, the patient takes 81 mg aspirin and Plavix. Patient did not take her medications on 08/21/19. - History Of Current Complaint Stated Complaint: FALL HEAD INJURY Time Seen by Provider: 08/21/19 14:50 Hx Obtained From: Patient, Family/Public Relations Senior Associate - Son Mechanism Of Injury: Fall From A Standing Position Onset/Duration: Traumatic, Still Present Onset of Pain: Immediate Severity Currently: Moderate Severity Initially: Moderate Pain Intensity: 5 Pain Scale Used: 0-10 Numeric Location of Head Injury: Occipital Associated Signs And Symptoms: Negative Anticoagulant Therapy: Other: - 81 mg aspirin - Allergies/Home Medications Allergies/Adverse Reactions: Allergies Allergy/AdvReac Type Severity Reaction Status Date / Time No Known Allergies Allergy Verified 08/21/19 13:45 Home Medications: Home Medications Lisinopril TAB* [Prinivil TAB*] 10 mg PO DAILY 08/21/19 [History Confirmed 08/21] PMH/Surg Hx/FS Hx/Imm Hx Previously Healthy: Yes Endocrine/Hematology History: Reports: Hx Diabetes - type 2 Denies: Hx Blood Transfusions, Hx Anemia Cardiovascular History: Reports: Hx Hypercholesterolemia, Hx Hypertension Denies: Hx Angina, Hx Coronary Artery Disease, Hx Deep Vein Thrombosis, Hx Myocardial Infarction, Hx Valvular Heart Disease Respiratory History: Reports: Hx Seasonal Allergies, Other Respiratory Problems/ Disorders - chronic cough Denies: Hx Asthma, Hx Chronic Obstructive Pulmonary Disease (COPD), Hx Pneumonia GI History: Reports: Hx Gastroesophageal Reflux Disease Sensory History: Reports: Hx Contacts or Glasses Denies: Hx Legally Blind, Hx Deafness, Hx Hearing Aid Opthamlomology History: Reports: Hx Contacts or Glasses Denies: Hx Legally Blind EENT History: Denies: Hx Deafness Neurological History: Reports: Other Neuro Impairments/Disorders - confusion - Surgical History Surgical History: Yes Surgery Procedure, Year, and Place: bilateral cataract removal Infectious Disease History: No Infectious Disease History: Denies: Traveled Outside the [place] in Last 30 Days - Family History Known Family History: Positive: Hypertension, Diabetes Negative: Cardiac Disease - Social History Occupation: Retired Lives: With Family Alcohol Use: Occasionally Alcohol Amount: 3-4/week (One every other day). Hx Substance Use: No Substance Use Type: Reports: None Hx Tobacco Use: No Smoking Status (MU): Never Smoked Tobacco Review of Systems Negative: Chest Pain Negative: Shortness Of Breath Positive: Myalgia - Back of the head. Negative: Arthralgia - Neck pain Negative: Syncope All Other Systems Reviewed And Are Negative: Yes Physical Exam - Summary Physical Exam Summary: VITAL SIGNS: Reviewed. GENERAL: Patient is a well-developed and nourished elderly FEMALE who is lying comfortable in the stretcher. Patient is not in any acute respiratory distress. HEAD AND FACE: No signs of trauma. No ecchymosis, hematomas or skull depressions. No sinus tenderness. EYES: PERRLA, EOMI x 2, No injected conjunctiva, no nystagmus. EARS: Hearing grossly intact. Ear canals and tympanic membranes are within normal limits. MOUTH: Oropharynx within normal limits. NECK: Supple, trachea is midline, no adenopathy, no JVD, no carotid bruit, no c- spine tenderness, neck with full ROM. CHEST: Symmetric, no tenderness at palpation. LUNGS: Clear to auscultation bilaterally. No wheezing or crackles. CVS: Regular rate and rhythm, S1 and S2 present, no murmurs or gallops appreciated. ABDOMEN: Soft, non-tender. No signs of distention. No rebound, no guarding, and no masses palpated. Bowel sounds are normal. EXTREMITIES: FROM in all major joints, no edema, no cyanosis or clubbing. NEURO: Alert and oriented x 3. No acute neurological deficits. Speech is normal and follows commands. GCS: 15 SKIN: Dry and warm. Triage Information Reviewed: Yes Vital Signs Reviewed: Yes - [place] Coma Scale Best Eye Response: 4 - Spontaneous Best Motor Response: 6 - Obeys Commands Best Verbal Response: 5 - Oriented Coma Scale Total: 15 Procedures - Sedation Patient Received Moderate/Deep Sedation with Procedure: No Diagnostics - Laboratory Lab Statement: Any lab studies that have been ordered have been reviewed, and results considered in the medical decision making process. - CT Brain CT CT Interpretation Completed By: Radiologist Summary of CT Findings: Brain CT IMPRESSION: 1. NO EVIDENCE FOR ACUTE INTRACRANIAL ABNORMALITY. 2. OLD LACUNAR INFARCTS AND FINDINGS SUGGESTIVE OF MODERATE CHRONIC SMALL VESSEL ISCHEMIC. CHANGES. Reviewed by Dr. Ospina. Cervical Spine CT CT Interpretation Completed By: Radiologist Summary of CT Findings: Cervical Spine CT IMPRESSION: Multilevel degenerative disc disease. Likely old ununited fracture spinous process of C6. No fracture is noted. Reviewed by Dr. Ospina. Head Injury Course/Dx Assessment/Plan: The patient is an 89-year-old female who presents to the emergency department with a chief complaint of a mechanical fall while she was going to the bathroom at the urgent care. Patient had no loss of consciousness. Patient complains of slight pain in the back of the head and has no laceration. Patient reports that she is taking Plavix and aspirin. C-spine CT impression : Multilevel degenerative disc cyst. Likely ununited fracture is spinous processes of C6. No fractures noted. Head CT impression: No evidence for acute intracranial abnormality. Old lacunar infarct and findings suggestive of moderate chronic small vessel ischemic changes. In the ED course, the patient was given Tylenol for a headache. At this point, the patient is alert and oriented 3 therefore she will be discharged home to follow-up with her primary care physician. Patient was given 1 dose of lisinopril for her high blood pressure since she didnt take any blood pressure medications this morning. At this point, I discussed all of the findings and test results with the patient. She was instructed to return to the emergency room immediately if any of the symptoms return or worsen. Patient understands and agrees. Neurological exam before discharge: Patient is alert and oriented x 3. No acute neurological deficits. Patient's vital signs are stable. Patient is to follow up with her PCP in the next 2-3 days. They understand and agree. Plan of care was discussed with the patient and patient understands and agrees with the plan of care. All questions were answered at the patient's satisfaction. There were no further complaints or concerns. - Diagnoses Provider Diagnoses: Head contusion, Uncontrolled hypertension Discharge ED - Sign-Out/Discharge Documenting (check all that apply): Patient Departure - Discharge - Discharge Plan Condition: Stable Disposition: HOME Patient Education Materials: Contusion in Adults (ED) Referrals: Preeti Padgett MD [Primary Care Provider] - Additional Instructions: FOLLOW UP WITH YOUR PRIMARY CARE PROVIDER WITHIN 3 DAYS. RETURN TO THE ED FOR ANY WORSENING OR NEW SYMPTOMS. - Billing Disposition and Condition Condition: STABLE Disposition: Home - Attestation Statements Document Initiated by Scribe: Yes Documenting Scribe: Robyn Blake Provider For Whom Gildaibe is Documenting (Include Credential): Zac Ospina MD Scribe Attestation: Robyn Riley, scribed for Zac Ospina MD on 08/21/19 at 2101. Scribe Documentation Reviewed: Yes Provider Attestation: The documentation as recorded by the Robyn solitario accurately reflects the service I personally performed and the decisions made by Zac kelley MD Status of Scribe Document: Viewed
[2019-08-21] MEDS ORDERED: Acetaminophen TAB* 325 MG PO ONE (16:16)
[2019-08-21 16:33] VITALS: BP 160/68
== END 2019-08-21 16:37 | disposition home or self-care (01) ==
LOC: ED 14:41
DX: S00.93XA Contusion of unspecified part of head, initial encounter (principal); W01.0XXA Fall on same level from slipping, tripping and stumbling without subsequent striking against object, initial encounter; Y92.532 Urgent care center as the place of occurrence of the external cause; M50.322 Other cervical disc degeneration at C5-C6 level; E11.9 Type 2 diabetes mellitus without complications; I10 Essential (primary) hypertension; Z79.01 Long term (current) use of anticoagulants; Z79.82 Long term (current) use of aspirin
CPT/HCPCS: 70450; 72125; 99282; A9270-GY